=== PATIENT | female | born 1945 | race Hispanic/Latino ===

== ENCOUNTER 2024-06-11 09:34 | Emergency (ER) | payer SELFPAY ==
[2024-06-11 09:52] VITALS: BP 120/70; PULSE 89; RESP 14; TEMP 36.4; O2SAT 100
--- NOTE | 2024-06-11 10:17 | PC.NURSE ---
Pt states albert leaving and going to [place] where her doctors are.
--- OUTSIDE RECORDS SUMMARY | 2024-06-11 10:41 | XMS_ITS | Clinical Summary ---
Author Organization [facility] [address] [place] [address] Address [address] [facility] [address] [place] [address] Care Team Providers Care Equipment Service Associate Name Role Phone Mitchell Menard MD Primary Care Provi grazyna Allergies Active Allergy Reactions Criticality Noted Date Comments Other Chest tightness,Shortness of breath,Swelling,Swollen tongue,Wheezing High 04/23/2024 Penicillins Rash Medium 12/27/2023 Propofol Anaphylaxis High 05/02/2024 Family was with patient and said she can't have general anesthesia due to being intubated in the past before because of this medication. Medications aspirin 81 mg enteric coated tabletIndicatio ns:Controlled type 2 diabetes mellitus with complication, without long-term current use of insulin (HCC) Take 1 tablet (81 mg total) by mouth daily Active losartan (COZAAR) 100 mg tabletIndicatio ns:Hypertension , essential Take 0.5 tablets (50 mg total) by mouth daily 90 tablet 1 4 12/22/19 25 Active nitroglycerin (NITROSTAT) 0.4 mg SL tabletIndicatio ns:acute episode of anginal pain Place 1 tablet (0.4 mg total) under the tongue every 5 (five) minutes as needed for chest pain for up to 30 doses 30 tablet 3 4 Active diclofenac sodium (VOLTAREN) 1 % gelIndications: Osteoarthritis Apply 4 g topically 4 (four) times a day 150 g 3 4 Active rosuvastatin (CRESTOR) 20 mg tablet Take 1 tablet (20 mg total) by mouth daily 30 tablet 11 4 01/23/20 25 Active cetirizine (ZyrTEC) 10 mg tabletIndicatio ns:Seasonal allergies Take 1 tablet (10 mg total) by mouth daily as needed for allergies 90 tablet 4 4 02/10/20 25 Active fluticasone propionate (FLONASE) 50 mcg/actuation nasal sprayIndication s:Seasonal allergies Administer 2 sprays into each nostril daily 3 each 4 4 Active azelastine (ASTELIN) 137 mcg (0.1 %) nasal sprayIndication s:Seasonal allergies Administer 1 spray into each nostril 2 (two) times a day Use in each nostril as directed 30 mL 1 4 Active FreeStyle Kim 3 Sensor deviceIndicatio ns:Controlled type 2 diabetes mellitus with complication, without long-term current use of insulin (HCC) 1 Device continuously Change sensor every 14 days 4 each 6 5 Active albuterol HFA (PROVENTIL HFA,VENTOLIN HFA,PROAIR HFA) 90 mcg/actuation inhalerIndicati ons:Acute Asthma Attack Inhale 2 puffs every 6 (six) hours as needed for wheezing or shortness of breath 1 each 3 5 Active isosorbide mononitrate ER (IMDUR) 30 mg 24 hr tablet Take 1 tablet (30 mg total) by mouth daily 90 tablet 3 5 04/13/19 26 Active metFORMIN XR (GLUCOPHAGE XR) 500 mg 24 hr tablet Take 3 tablets (1,500 mg total) by mouth daily with breakfast 270 tablet 3 5 Active gabapentin (NEURONTIN) 300 mg capsuleIndicati ons:Diabetic peripheral neuropathy (HCC) Take 1 capsule (300 mg total) by mouth 3 (three) times a day 90 capsule 2 5 07/24/19 25 Active Active Problems Problem Noted Date Diagnosed Date Generalized osteoarthritis of multiple sites 06/2024 Unstable angina 01/17/2024 Assessment & Plan (01/17/2024 8:21 PM CDT): - likely CAD, s/p cardiac catheterization in 1995- records not available for review - per recent PCP records: underwent lexiscan (07/18/23): normal isotope uptake at stress and rest. There is no evidence of myocardial ischemia or scar. Normal LV size and systolic function, LV EF 70%. No regional wall motion abnormalities. Overall findings are present low risk scan. - Reports intermittent chest pain, currently asymptomatic - Continue ASA 81 mg daily, nitroglycerin p.r.n. - Referral to Cardiology Overweight with body mass index (BMI) 25.0-29.9 01/17/2024 Assessment & Plan (03/30/2024 3:10 PM [facility]): - ADA/ heart healthy diet Assessment & Plan (01/17/2024 8:22 PM CDT): - ADA/heart healthy diet Diabetic peripheral neuropathy 01/17/2024 Assessment & Plan (03/30/2024 3:10 PM [facility]): - chronic, continue gabapentin Assessment & Plan (01/17/2024 8:28 PM CDT): - Reports chronic lower extremity burning sensation - Sensation intact, 2+ posterior tibialis and dorsalis pedis pulses - Start low-dose gabapentin Chronic low back pain with bilateral sciatica Assessment & Plan (01/17/2024 8:32 PM CDT): - Pt declines imaging at this time - referral to PT Hypertension associated with diabetes 01/02/2024 Assessment & Plan (03/30/2024 3:05 PM [facility]): - chronic; stable at goal of < 140/90 - Continue losartan 100 mg daily Assessment & Plan (01/17/2024 8:11 PM CDT): - Chronic, stable at goal of < 140/90 - Continue losartan 100 mg daily Assessment & Plan (01/02/2024 11:02 PM CDT): - chronic, stable at goal of < 140/90 - continue losartan 100 mg daily - likely CAD, s/p cardiac catheterization in 1995- awaiting further medical records - on ASA 80 mg daily, nitroglycerin p.r.n. - currently asymptomatic Controlled type 2 diabetes m joellen with complication, without long-term current use of insulin 01/02/2024 Assessment & Plan (03/30/2024 3:07 PM [facility]): - chronic; most recent hemoglobin A1c 7 - Continue Januvia 50 mg daily plus metformin 500 mg b.i.d. - eGFR 86, uACR 21 - on ACEI - Recommend yearly dilated eye exam - peripheral protective sensation intact Assessment & Plan (01/17/2024 8:03 PM CDT): - Chronic, hemoglobin A1c of 7 - Continue Januvia 50 mg daily plus metformin 500 mg b.i.d. - eGFR 86, uACR < 30 - on ACEI - Recommend yearly dilated eye exam - Monofilament exam completed- intact peripheral sensation Assessment & Plan (01/02/2024 10:56 PM CDT): - chronic, poorly controlled - on freestyle Kim CGM- labile blood glucose levels - continue metformin 500 mg b.i.d. 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 lyubov itus 01/02/2024 Assessment & Plan (03/30/2024 3:10 PM [facility]): - chronic; LDL 103, goal < 70 - Continue atorvastatin 20 mg nightly- recently decreased by endo d/t myalgias - High ASCVD risk, consider adding Zetia, start ASA 81 mg - low-fat/high-fiber diet, increase physical activity The 10-year ASCVD risk score (Belem AHUMADA, et al., 2019) is: 47.2% Values used to calculate the score: Age: 78 years Sex: Female Is Non- : No Diabetic: Yes Tobacco smoker: No Systolic Blood Pressure: 128 mmHg Is BP treated: Yes HDL Cholesterol: 51 mg/dL Total Cholesterol: 174 mg/dL Assessment & Plan (01/17/2024 8:09 PM CDT): - Chronic, LDL 103, goal < 70 - Has been out of cholesterol medicine, restart atorvastatin 40 mg nightly - high ASCVD risk- 51.4%, may consider increasing atorvastatin to 80 mg or adding zetia- if tolerating current atorvastatin dose well; on ASA 81 mg daily - Referral to Cardiology Assessment & Plan (01/02/2024 11:01 PM CDT): - chronic, cholesterol levels not available for review - continue atorvastatin 40 mg nightly - check lipid panel History of colonic polyps 12/28/2023 Encounter for screening colonoscopy 12/28/2023 Resolved Problems Problem Noted Date Diagnosed Date Resolved Date Body mass index (BMI) of 28.0-28.9 in adult 01/02/2024 01/17/2024 Encounter for screening colonoscopy 12/28/2023 01/17/2024 Encounters Date Type Department Care Team Description 05/25/2024 9:45 AM [facility] Office Visit [facility] at [address] [place] [phone] Sofie Saldivar NP 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) (Primary Dx); Hypertension associated with diabetes (HCC) 05/02/2024 11:00 AM [facility] - 05/02/2024 11:30 AM [facility] Surgery [address] [address] Calvin Sousa DO COLON REMOVAL SNARE 05/02/2024 9:55 AM [facility] Anesthesia Event [address] [address] Jacobo Shaw MD McDowell, Juri Osmell, MD 05/02/2024 7:16 AM [facility] - 05/02/2024 11:16 AM [facility] Hospital Encounter [address] [address] Calvin Sousa DO History of colonic polyps; Encounter for screening colonoscopy Discharge Disposition: Discharge to home or self care 04/24/2024 11:00 AM [facility] Office Visit [facility] at [address] [phone] Mitchell Menard MD Controlled type 2 diabetes mellitus with complication, without long-term current use of insulin (HCC) (Primary Dx); Hypertension associated with diabetes (HCC); Diabetic peripheral neuropathy (HCC); Generalized osteoarthritis of multiple sites 04/24/2024 10:00 AM [facility] Office Visit [facility] at [address] [place] [phone] Carlos Rodriguez DO Controlled type 2 diabetes mellitus with complication, without long-term current use of insulin (HCC) (Primary Dx); Hyperlipidemia associated with type 2 diabetes mellitus (HCC); Hypertension associated with diabetes (HCC) 04/18/2024 Telephone [facility] at [address] [phone] Bina Lugo NP Medical Records Request 04/13/2024 1:00 PM [facility] Office Visit [facility] at [address] [phone] Sofie Saldivar NP 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) (Primary Dx); Unstable angina (HCC); Hypertension associated with diabetes (HCC) 03/23/2024 1:30 PM [facility] Office Visit [facility] at [address] [place] [phone] Bina Lugo NP Mild intermittent asthma without complication (Primary Dx); Controlled type 2 diabetes mellitus with complication, without long-term current use of insulin (HCC); Hypertension associated with diabetes (HCC); 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); Overweight with body mass index (BMI) 25.0-29.9; Diabetic peripheral neuropathy (HCC) from Last 3 Months Immunizations Immunization Administration Dates Next Due Influenza LAIV (Nasal) 12/24/2022(Deferred: Mariana ent Refused) Influenza, Unspecified 04/24/2024(Deferr ed: Patient Refused),01/15/2023(Deferred: Patient Refused),12/28/2022(Deferred: Patient Refused),12/28/2022(Deferred: Patient Refused) Surgical History Surgery Date Site/Laterality Comments COLONOSCOPY Medical History Medical History Date Comments Low bone mass HTN (hypertension) HLD (hyperlipidemia) DM (diabetes mellitus) (HCC) Neuropathy Adenomatous colon polyp DJD (degenerative joint disease) CAD (coronary artery disease) Vitamin D deficiency Social History Tobacco Use Types Packs/Day Years Used Date Smoking Tobacco: Never Tobacco Cessation:Counseling Given: Not Answered AUDIT-C Answer Date Recorded Q1: How often do you have a drink containing alc ohol? Never 05/02/2024 Average Number of Drinks Not on file 025 Frequency of Binge Drinking Not on file 04/21 PHQ-2 Answer Date Recorded PHQ-2 Total Score (If total score is 3 or more points, staff should administer the PHQ-9) 0 04/24/2024 PHQ-9 Answer Date Recorded PHQ-9 Total Score 1 12/27/2023 Personal Safety Answer Date Recorded Have you ever been in or are you currently in a harmful physical or emotional relationship or is someone making you feel afraid or unsafe? Denies 05/02/2024 Comments Unknown Sex and Gender Information Value Date Recorded Sex Assigned at Not on file Legal Sex Female 2:41 PM CDT Gender Identity Not on file Sexual Orientation Not on file Obstetrics History Last Filed Vital Signs Vital Sign Reading Time Taken Comments Blood Pressure 129/70 05/25/2024 10:24 AM [facility] Pulse 83 05/25/2024 10:24 AM [facility] Temperature 36.8 C (98.2 F) 05/02/2024 10:59 AM [facility] Respiratory Rate 16 05/02/2024 10:59 AM [facility] Oxygen Saturation 100% 05/02/2024 10:59 AM [facility] Inhaled Oxygen Concentration - - Weight 73.5 kg (162 lb) 05/25/2024 10:24 AM [facility] Height 157.5 cm (5' 2 ) 05/25/2024 10:24 AM [facility] Body Mass Index 29.63 05/25/2024 10:24 AM [facility] Plan of Treatment Health Maintenance Due Date Last Done Comments Dilated Eye Exam 1945 DTaP/Tdap/Td Vaccine (1 - Tdap) 1956 Pneumococcal vaccine 65+ (1 of 2 - PCV) 1964 Zoster Vaccine (1 of 2) 09/08/1995 Well Visit 65+ 2010 Influenza Vaccine (#1) 2023 Hemoglobin A1C 10/22/2024 04/24/2024, 12/27/2023 Albumin Creatinine Ratio, Urine 12/26/2024 Lipid Panel 12/26/2024 12/27/2023, 07/18/2023 eGFR 12/26/2024 12/27/2023 Foot Exam 01/16/2025 01/17/2024 Depression Screening 04/24/2025 04/24/2024, 12/27/19 Fall Risk Assessment 05/02/2025 05/02/2024, 12/27/19 Osteoporosis Screening-Bone Density Scan 02/19/2026 02/20/2024, 09/11/2020, 09/11/2020 Hepatitis B Screening Completed 12/27/2023 Hepatitis C Screening Completed 12/27/2023 Procedures Procedure Name Priority Date/Time Associated Diagnosis Comments SURGICAL PATHOLOGY STAT 05/02/2024 11 :36 AM [facility] History of colonic polyps Encounter for screening colonoscopy COLON REMOVAL SNARE 05/02/2024 9:54 AM [facility] History of colonic polyps Encounter for screening colonoscopy POCT GLUCOSE DEVICE Routine 05/02/2024 9:47 AM [facility] COLONOSCOPY 05/02/2024 8:50 AM [facility] POCT HEMOGLOBIN A1C Routine 04/24/2024 10:14 AM [facility] Controlled type 2 diabetes mellitus with complication, without long-term current use of insulin (HCC) DEXA AXIAL SKELETON BONE DENSITY 1 OR MORE SITES Schedule Routine, Read Routine (OP Routine) 02/20/2024 3:06 PM [facility] Post-menopause HEPATITIS C ANTIBODY Routine 12/27/2023 4:00 PM CDT Encounter for hepatitis C screening test for low risk patient EGFR Routine 12/27/2023 4:00 PM CDT Controlled type 2 diabetes mellitus with complication, without long-term current use of insulin (HCC) Hypertension, essential LIPID PANEL Routine 12/27/2023 4:00 PM CDT Type 2 diabetes mellitus with hyperlipidemia (HCC) ALBUMIN CREATININE RATIO, URINE Routine 12/27/2023 4:00 PM CDT Controlled type 2 diabetes mellitus with complication, without long-term current use of insulin (HCC) from Last 3 Months or Most Recently Relevant to Health Maintenance Results * Surgical pathology (05/02/2024 11:36 AM [facility]) Tissue (Polyp(s), colon/colorectal, esophageal, gastric) 05/02/2024 10:12 AM [facility] Narrative PATHOLOGY [facility] - 05/03/2024 10:51 AM [facility] EPIC results best viewed via link to PDF [facility] Department of Pathology [address] [place] [address] Note to Patients: This report may contain a detailed description of human tissue sent by a health care provider to the laboratory for pathologic evaluation. The content of this report is essential for diagnosis and may provide important critical findings. This information may be unfamiliar to patients to review without a medical professional present. It is advised that the patient review this report in the presence of a health care provider who can answer questions and explain the details. Final Report Patient Name: ALISHA IRELAND Address: [address] [place] [address] Gender: F : 1945 (Age: 78) Service: Gastro Location: [facility] Hospital #: [id number] Patient Type: [facility] Taken: 05/02/2024 Received: 05/02/2024 Accessioned: 05/02/2024 Reported: 05/03/2024 Physician(s):Dr. Calvin Sousa, D.O. Diagnosis: Colon, cecum, biopsy: - Tubulovillous adenoma. - No evidence of high-grade dysplasia or malignancy. Matt Mcpherson MD Report Electronically Reviewed and Signed Out By Matt Mcpherson MD 05/03/2024 10:51:37 Specimen(s) Received: A: Cecum colon polyp x 1 Microscopic Description: Microscopic examination of the bisected specimen shows polypoid fragments of colonic mucosa with adenomatous mucosal changes and focal surface villiform architecture consistent with a tubulovillous adenoma. There is no evidence of high-grade dysplasia or malignancy. Clinical History: History of colonic polyps. Screening colonoscopy. Gross Description: The specimen is submitted in a single formalin filled container labeled ALISHA BEKA and cecum colon polyp . It is 1 hook polypoid tissue fragment measuring 9 mm. Inked and bisected. All in one cassette. Debbie Gutierrez R.N., P.A./Ryann Coello M.D. REPORT IMAGES AND SCANNED DOCUMENTS, IF INCLUDED, ONLY VIEWABLE IN PDF VERSION OF REPORT The performance characteristics of some immunohistochemical stains, fluorescence in-situ hybridization tests and immunophenotyping by flow cytometry cited in this report (if any) were determined by the Surgical Pathology Department at [facility] as part of an ongoing aircraft quality control inspector program and in compliance with federally mandated regulations drawn from the Clinical Laboratory Improvement Act of 1988 (CLIA '88). Some of these tests rely on the use of analyte specific reagents and are subject to specific labeling requirements by the US Food and Drug Administration. Such diagnostic tests may only be performed in a facility that is certified by the Department of Health and Human Services as a high complexity laboratory under CLIA '88. The FDA has determined that such clearance or approval is not necessary. This test is used for clinical purposes. It should not be regarded as investigational or for research. Nevertheless, federal rules concerning the medical use of analyte specific reagents require that the following disclaimer be attached to the report: This test was developed and its performance characteristics determined by the Surgical Pathology Department [facility]. It has not been cleared or approved by the U. S. Food and Drug Administration. Note for decalcified specimens: This assay has not been validated on decalcified tissues. Results should be interpreted with caution given the possibility of false negativity on decalcified specimens Calvin Sousa DO LAB PATHOLOGY ORDERABLES Final Result PATHOLOGY [facility] [place] [address] [place] [address] * POCT glucose (05/02/2024 9:47 AM [facility]) Glucose, POC 114 70 - 199 mg/dL Blood 05/02/2024 9:47 AM [facility] 05/02/2024 9:47 AM [facility] us Calvin Sousa DO LAB POCT ORDERABLES - DEVICE F inal Result JUAN M POLANCO IESHA [address] Department [place] [address] * Colonoscopy (05/02/2024 8:50 AM [facility]) Anatomical Region Laterality Modality Other Narrative Procedure Note Calvin Sousa DO - 05/02/2024 8:50 AM CST [facility] Patient Name: Alisha Ireland Procedure Date: 05/02/2024 8:50 AM Date of : 1945 Admit Type: Outpatient Age: 78 Gender: Female Attending MD: Calvin Sousa D.O. Room: [facility] ENDOSCOPY ROOM 3 Note Status: Finalized Patient Profile: Refer to note in patient chart for documentation of history and physical. Procedure: Colonoscopy Indications: High risk colon cancer surveillance: Personalhistory of colonic polyps, Last colonoscopy: 2019 Referring MD: Jason Kulkarni D.O. Providers: Calvin Sousa D.O. Impression: - The examined portion of the ileum was normal. - One 12 mm polyp in the cecum, removed with a hot snare. Resected and retrieved. - Diverticulosis in the sigmoid colon. - Internal hemorrhoids. Recommendation: - Discharge patient to home. - Resume previous diet. - Continue present medications. - Await pathology results. - Repeat colonoscopy in 3 years for surveillance. - Return to GI office PRN. Medicines: Monitored Anesthesia Care Complications: No immediate complications. Estimated Blood Loss: Estimated blood loss was minimal. Procedure: Pre-Anesthesia Assessment: - As per anesthesia. The benefits, risks and alternatives of theprocedure and sedation were discussed and informed consentwas obtained. All questions were answered. Please referto the signed informed consent document in the medical record. The bowel preparation used was Miralax via split dose instruction. The bowel preparation usedwas bisacodyl tablets via split dose instruction. The scope was passed under direct vision. The Pediatric Colonoscope PCF-H190L [id number] was introducedthrough the anus and advanced to the 5 cm into the ileum.The terminal ileum, ileocecal valve, appendicealorifice, and rectum were photographed. The colonoscopy was performed without difficulty. The patient tolerated the procedure well. The quality of the bowel preparation was adequate to identify polyps 6 mmand larger in size. Findings: The perianal and digital rectal examinations were normal. The terminal ileum appeared normal. A 12 mm polyp was found in the cecum. The polyp was pedunculated. The polyp was removed with a hot snare. Resection and retrieval were complete. To prevent bleeding post-intervention, one hemostatic clipwas successfully placed (MR conditional). Clip pharmacist assistant: Jumio. There was no bleeding at the end of the procedure. A few diverticula were found in the sigmoid colon. Internal hemorrhoids were found. The hemorrhoids were small. No additional abnormalities were found on retroflexion. Electronically signed by Calvin Sousa M.D. Calvin Sousa D.O. 05/02/2024 10:30:37 AM Number of Addenda: 0 Note Initiated On: 05/02/2024 8:50 AM Procedure Code(s): --- Professional --- 13476, Colonoscopy, flexible; with removal of tumor(s), polyp(s), or other lesion(s) by snare technique --- Technical --- 90769, Colonoscopy, flexible; with removal of tumor(s), polyp(s), or other lesion(s) by snare technique Diagnosis Code(s): --- Professional --- K64.8, Other hemorrhoids Z86.010, Personal history of colonic polyps D12.0, Benign neoplasm of cecum K57.30, Diverticulosis of large intestine without perforation orabscess without bleeding --- Technical --- K64.8, Other hemorrhoids Z86.010, Personal history of colonic polyps D12.0, Benign neoplasm of cecum K57.30, Diverticulosis of large intestine without perforation orabscess without bleeding CPT copyright 2020 [employer]. All rights reserved. The codes documented in this report are preliminary and upon meal grinder tender reviewmay be revised to meet current compliance requirements. Recognized by the [employer] for promoting quality in endoscopy Calvin Sousa DO ENDOSCOPY PROCEDURES Final Res ult * POCT hemoglobin A1c (04/24/2024 10:14 AM [facility]) Hemoglobin A1C, POC 7.6 4.0 - 5.6 % Blood 04/24/2024 10:1 4 AM [facility] Carlos Rodriguez DO POINT OF CARE TEST ORDERABL ES Final Result * Dexa Axial Skeleton Bone Density 1 or 2 Site (02/20/2024 3:06 PM [facility]) Anatomical Region Laterality Modality Body N/A Other 02/20/2024 9:06 PM [facility] Narrative 02/20/2024 9:07 PM [facility] EXAM DESCRIPTION: DEXA AXIAL SKELETON BONE DENSITY 1 OR MORE SITES REASON FOR STUDY: 78 y/o year old F with given history of: Menopause screening for osteoporosis Screening. Wood Turning Lathe Operator/Model: Joosy Discovery SL (S/N [id number]) CLINICAL INFORMATION: Current height: 63 inches Maximum height: 63 inches Weight: 158 pounds Risk factors: Postmenopausal COMPARISON: None available FINDINGS: AP LUMBAR SPINE L1-L4: Total BMD is 1.078 g/cm2 T-score is 0.3 LEFT HIP: Total BMD is 0.926 g/cm2 T-score is -0.1 Femoral neck BMD is 0.667 g/cm2 T-score is -1.6 FRAX: 10 year risk for a major osteoporotic fracture is 13 %, 10 year risk for a hip fracture is 3.1 % IMPRESSION: Low Bone Mass. REFERENCE: Bone mineral density: T-Score: Normal (T-score above or = -1.0) Low bone mass (T-score between -1.0 and -2.5) replaces the previously used term osteopenia Osteoporosis (T-score = or below -2.5) Z-Score: Within the expected range for age (Z-score above -2.0) Below the expected range for age (Z-score is -2.0 or below) Please see below follow up recommendations. Medical evaluation for secondary causes of low bone mineral density may be appropriate. FRAX is a World Health Organization validated fracture risk assessment tool that calculates a person's 10 year probability of a major osteoporosis related fracture and hip fracture. According to the National Osteoporosis Foundation guidelines, postmenopausal women and men age 50 or older with low bone mass and a 10 year probability of a major osteoporosis related fracture = or greater than 20% or a 10 year probability of a hip fracture = or greater than 3% should be considered for pharmacological treatment for the prevention of osteoporosis. For further information, including treatment recommendations, please refer to the 2019 ISCD Official Positions (http://www.iscd.org) and the NOF's Clinician's Guide to Prevention and Treatment of Osteoporosis (http://www.nof.org/professionals/clinical-guidelines) THIS IS AN ELECTRONICALLY VERIFIED FINAL REPORT 02/20/2024 9:07 PM - Electronically signed by Og Rapp M.D. MF: SHIVA Report ID: [id number] Reading Location: [id number] Procedure Note Og Rapp MD - 02/20/2024 EXAM DESCRIPTION: DEXA AXIAL SKELETON BONE DENSITY 1 OR MORE SITES REASON FOR STUDY: 78 y/o year old F with given history of: Menopause screening for osteoporosis Screening. Wood Turning Lathe Operator/Model: Joosy Discovery SL (S/N [id number]) CLINICAL INFORMATION: Current height: 63 inches Maximum height: 63 inches Weight: 158 pounds Risk factors: Postmenopausal COMPARISON: None available FINDINGS: AP LUMBAR SPINE L1-L4: Total BMD is 1.078 g/cm2 T-score is 0.3 LEFT HIP: Total BMD is 0.926 g/cm2 T-score is -0.1 Femoral neck BMD is 0.667 g/cm2 T-score is -1.6 FRAX: 10 year risk for a major osteoporotic fracture is 13 %, 10 year risk for ahip fracture is 3.1 % IMPRESSION: Low Bone Mass. REFERENCE: Bone mineral density: T-Score: Normal (T-score above or = -1.0) Low bone mass (T-score between -1.0 and -2.5) replaces thepreviously used term osteopenia Osteoporosis (T-score = or below -2.5) Z-Score: Within the expected range for age (Z-score above -2.0) Below the expected range for age (Z-score is -2.0 or below) Please see below follow up recommendations. Medical evaluation forsecondary causes of low bone mineral density may be appropriate. FRAX is a World Health Organization validated fracture risk assessmenttool that calculates a person's 10 year probability of a major osteoporosisrelated fracture and hip fracture. According to the National OsteoporosisFoundation guidelines, postmenopausal women and men age 50 or older with low bonemass and a 10 year probability of a major osteoporosis related fracture = or greater than 20% or a 10 year probability of a hip fracture = or greaterthan 3% should be considered for pharmacological treatment for the preventionof osteoporosis. For further information, including treatment recommendations, please referto the 2019 ISCD Official Positions (http://www.iscd.org) and the NOF's Clinician's Guide to Prevention and Treatment of Osteoporosis (http://www.nof.org/professionals/clinical-guidelines) THIS IS AN ELECTRONICALLY VERIFIED FINAL REPORT 02/20/2024 9:07 PM - Electronically signed by Og Rapp M.D. MF: SHIVA Report ID: [id number] Reading Location: [place] [address] Bina Lugo TRANSPORT SPECIALIST IMG DXA PROCEDURES Final Res ult * eGFR (12/27/2023 4:00 PM CDT) eGFR 86 >=60 mL/min/1. 73 m2 Comment: Interpretive Data Reference Interval Normal >/= 90 mL/min/1.73m2 Mildly decreased* 60 - 89 mL/min/1.73m2 Mildly to moderately decreased 45 - 59 mL/min/1.73m2 Moderately to severely decreased 30 - 44 mL/min/1.73m2 Severely decreased 15 - 29 mL/min/1.73m2 Kidney Failure < 15 mL/min/1.73m2 *Relative to young adult level Estimated glomerular filtration rate is determined by the 2020 CKD-EPI equation recommended by the National Kidney Foundation (A Unifying Approach to GFR Estimation: Recommendations of the NKF-ASK Task Force on Reassessing the Inclusion of Race in Diagnosing Kidney Disease, JASN 2020). The CKD-EPI equation should not be used for patients with unstable renal function and has not been validated in children and those over 70. Current interpretive data was last reviewed 2021. Blood 12/27/2023 4:00 PM CDT 12/27/2023 8:46 PM CDT Bina Lugo NP LAB BLOOD ORDERABLES Final R esult JUAN M [address] [address] [place] [place] [address] * Hepatitis C antibody Blood (12/27/2023 4:00 PM CDT) Pathologist [facility] Hep C Ab Nonreactive Nonreactive Comment: Interpretive Data Nonreactive: Antibodies to HCV not detected. Does NOT exclude the possibility of recent exposure to HCV. Equivocal: Equivocal for HCV antibodies. Supplemental molecular testing will be automatically performed to determine infection status in accordance with current CDC screening recommendations. Reactive: Positive for HCV antibodies. This may represent current or past HCV infection. Supplemental molecular testing will be automatically performed to determine current infection status in accordance with current CDC screening recommendations. Interpretive data was last revised on 2019. Blood 12/27/2023 4:00 PM CDT 12/27/2023 8:46 PM CDT Bina Lugo NP LAB MICROBIOLOGY - GENERAL O RDERABLES Final Result Performing Organization Address [facility] Co de Phone Number STEFANIEDWAYNE [address] [place] [address] * Albumin Creatinine Ratio, Urine (12/27/2023 4:00 PM CDT) Albumin Ur 23.1 mg/L Comment: Interpretive Data No reference range established. Current interpretive data was last revised 2018. Creatinine Ur 109.9 mg/dL [facility] Comment: Interpretive Data No reference range established. Current interpretive data was last revised 2018. Albumin Creatinine Ratio, Ur 21 1 - 29 mg/g [facility] Urine 12/27/2023 4:00 PM CDT 12/27/2023 8:46 PM CDT Bina Lugo NP LAB URINE ORDERABLES Final R esult Performing Organization Address [facility] Co de Phone Number STEFANIEDWAYNE [address] [place] [address] * Lipid panel (12/27/2023 4:00 PM CDT) Cholesterol 174 30 - 199 mg/dL Comment: Interpretive Data Ages < or = 19 years Acceptable: <170 mg/dL Borderline high: 170-199 mg/dL High: >or= 200 mg/dL Ages > or = 20 years Desirable: <200 mg/dL Borderline high: 200-239 mg/dL High: >or= 240 mg/dL Literature References: 1. Expert Panel on Integrated Guidelines for Cardiovascular Health and Risk Reduction in Children and Adolescents. Pediatrics 2011;128:S213 2. NCEP Expert Panel. Circulation 2004;110:227 Current Interpretive Data was last revised on 2017. Triglycerides 114 <=149 mg/dL JUAN M Comment: Interpretive Data Ages < or = 9 years Acceptable: <75 mg/dL Borderline high: 75-99 mg/dL High: >or= 100 mg/dL Ages 10 to 20 years Acceptable: <90 mg/dL Borderline high: 90-129 mg/dL High: >or= 130 mg/dL Ages > or = 20 years Desirable: <150 mg/dL Borderline high: 150-199 mg/dL High: 200-499 mg/dL Very high: >or= 499 mg/dL Literature References: 1. Expert Panel on Integrated Guidelines for Cardiovascular Health and Risk Reduction in Children and Adolescents. Pediatrics 2011;128:S213 2. NCEP Expert Panel. Circulation 2004;110:227 Current Interpretive Data was last revised on 2017. HDL 51 >=40 mg/dL JUAN M Comment: Interpretive Data Ages < or = 19 years Acceptable: >45 mg/dL Borderline low: 40-45 mg/dL Low: <40 mg/dL Ages > or = 20 years Desirable: >or= 60 mg/dL Low: <40 mg/dL Literature References: 1. Expert Panel on Integrated Guidelines for Cardiovascular Health and Risk Reduction in Children and Adolescents. Pediatrics 2011;128:S213 2. NCEP Expert Panel. Circulation 2004;110:227 Current Interpretive Data was last revised on 2017. LDL, calculated 103 <=129 mg/dL JUAN M Comment: Interpretive Data Ages < or = 19 years Acceptable: <110 mg/dL Borderline high: 110-129 mg/dL High: >or= 130 mg/dL Ages > or = 20 years Optimal: <100 mg/dL Near optimal: 100-129 mg/dL Borderline high: 130-159 mg/dL High: >160 mg/dL Calculated using the Cannon LDL-C estimating equation. This equation was implemented on 2023. Prior to this date LDL-C was estimated using the Friedewald equation. Literature References: 1. Expert Panel on Integrated Guidelines for Cardiovascular Health and Risk Reduction in Children and Adolescents. Pediatrics 2011;128:S213 2. NCEP Expert Panel. Circulation 2004;110:227 3. Davis M et al. NICK Cardiol. 2020 July 19;5(5):540-548. doi: 10.1001/jamacardio.2020.0013 Current Interpretive Data was last revised on 2023. Non-HDL Cholesterol 123 mg/dL JUAN M [place] Comment: Interpretive Data Ages < or = 19 years Acceptable: <120 mg/dL Borderline high: 120-144 mg/dL High: >145 mg/dL Ages > or = 20 years When triglycerides are >200 mg/dL, Non-HDL cholesterol is a secondary target of therapy with treatment goals that are 30 mg/dL greater than the LDL cholesterol target. Literature References: 1. Expert Panel on Integrated Guidelines for Cardiovascular Health and Risk Reduction in Children and Adolescents. Pediatrics 2011;128:S213 2. NCEP Expert Panel. Circulation 2004;110:227 Current Interpretive Data was last revised on 2017. Chol/HDL ratio 3 JUAN M [place] Blood 12/27/2023 4:00 PM CDT 12/27/2023 8:46 PM CDT us Bina Lugo NP LAB BLOOD ORDERABLES Final R esult JUAN M [place] [address] [address] [place] [address] from Last 3 Months or Most Recently Relevant to Health Maintenance Insurance IDPA [facility] MEDICARE ADVANTAGE Advance Directives For more information, please contact: [phone] * Full Code (Latest Code Status on File) Date Activated Date Inactivated Comments 05/02/2024 8:02 AM 05/02/2024 3:16 PM * Full Code Date Activated Date Inactivated Comments 05/02/2024 8:02 AM 05/02/2024 8:02 AM Care Teams Equipment Service Associate Relationship Specialty Start Date End Date Mitchell Menard MD [address] [address] PCP - General Family Practice 04/23/24
--- OUTSIDE RECORDS SUMMARY | 2024-06-11 10:41 | XMS_ITS | Referral Summary ---
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) (Primary Dx); Hypertension associated with diabetes (HCC) 05/02/2024 9:55 AM RADIO ASSEMBLER Anesthesia Event [address] [address] Jacobo Shaw MD McDowell, Juri Osmell, MD 05/02/2024 11:00 AM RADIO ASSEMBLER - 05/02/2024 11:30 AM RADIO ASSEMBLER Surgery [address] [address] Calvin Sousa DO COLON REMOVAL SNARE 05/02/2024 7:16 AM RADIO ASSEMBLER - 05/02/2024 11:16 AM RADIO ASSEMBLER Hospital Encounter [address] [address] Calvin Sousa DO History of colonic polyps; Encounter for screening colonoscopy Discharge Disposition: Discharge to home or self care 04/24/2024 11:00 AM RADIO ASSEMBLER Office Visit [facility] Primary Care at [address] [phone] Mitchell Menard MD Controlled type 2 diabetes mellitus with complication, without long-term current use of insulin (HCC) (Primary Dx); Hypertension associated with diabetes (HCC); Diabetic peripheral neuropathy (HCC); Generalized osteoarthritis of multiple sites 04/24/2024 10:00 AM RADIO ASSEMBLER Office Visit [facility]ocrine [facility] at [address] [phone] Carlos Rodriguez DO Controlled type 2 diabetes mellitus with complication, without long-term current use of insulin (HCC) (Primary Dx); Hyperlipidemia associated with type 2 diabetes mellitus (HCC); Hypertension associated with diabetes (HCC) 04/18/2024 Telephone [facility] Primary Care at [address] [phone] Bina Lugo NP Medical Records Request 04/13/2024 1:00 PM RADIO ASSEMBLER Office Visit [place] [facility] at [address] [phone] Sofie Saldivar NP 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) (Primary Dx); Unstable angina (HCC); Hypertension associated with diabetes (HCC) 03/23/2024 1:30 PM RADIO ASSEMBLER Office Visit [facility] Primary Care at [address] [phone] Bina Lugo NP Mild intermittent asthma without complication (Primary Dx); Controlled type 2 diabetes mellitus with complication, without long-term current use of insulin (HCC); Hypertension associated with diabetes (HCC); 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); Overweight with body mass index (BMI) 25.0-29.9; Diabetic peripheral neuropathy (HCC) from Last 3 Months Allergies Active Allergy Reactions Criticality Noted Date [...] complication, without long-term current use of insulin ([facility]) Take 1 tablet (81 mg total) by [...] complication, without long-term current use of insulin ([facility]) 1 Device continuously Change sensor every 14 [...] 01/17/2024 Assessment & Plan (03/30/2024 3:10 PM RADIO ASSEMBLER): - ADA/ heart healthy diet Assessment & Plan (01/17/2024 8:22 PM CDT): - ADA/heart healthy diet Diabetic peripheral neuropathy 01/17/2024 Assessment & Plan (03/30/2024 3:10 PM RADIO ASSEMBLER): - chronic, continue gabapentin Assessment & Plan [...] 01/02/2024 Assessment & Plan (03/30/2024 3:05 PM RADIO ASSEMBLER): - chronic; stable at goal of < [...] - currently asymptomatic Controlled type 2 diabetes sylvain cuenca with complication, without long-term current use of insulin 01/02/2024 Assessment & Plan (03/30/2024 3:07 PM RADIO ASSEMBLER): - chronic; most recent hemoglobin A1c 7 [...] 01/02/2024 Assessment & Plan (03/30/2024 3:10 PM RADIO ASSEMBLER): - chronic; LDL 103, goal < 70 [...] 01/17/2024 Encounter for screening colonoscopy 12/28/2023 01/17/2024 Immunizations Immunization Administration Dates Next Due Influenza LAIV (Nasal) 12/24/2022(Deferred: Mariana ent Refused) Influenza, Unspecified 04/24/2024(Deferr ed: Patient Refused),01/15/2023(Deferred: Patient Refused),12/28/2022(Deferred: Patient Refused),12/28/2022(Deferred: Patient Refused) Social History Tobacco Use Types Packs/Day Years [...] on file Sexual Orientation Not on file Last Filed Vital Signs Vital Sign Reading Time Taken Comments Blood Pressure 129/70 05/25/2024 10:24 AM RADIO ASSEMBLER Pulse 83 05/25/2024 10:24 AM RADIO ASSEMBLER Temperature 36.8 C (98.2 F) 05/02/2024 10:59 AM RADIO ASSEMBLER Respiratory Rate 16 05/02/2024 10:59 AM RADIO ASSEMBLER Oxygen Saturation 100% 05/02/2024 10:59 AM RADIO ASSEMBLER Inhaled Oxygen Concentration - - Weight 73.5 kg (162 lb) 05/25/2024 10:24 AM RADIO ASSEMBLER Height 157.5 cm (5' 2 ) 05/25/2024 10:24 AM RADIO ASSEMBLER Body Mass Index 29.63 05/25/2024 10:24 AM RADIO ASSEMBLER Plan of Treatment Not on file Procedures Procedure Name Priority Date/Time Associated Diagnosis Comments SURGICAL PATHOLOGY STAT 05/02/2024 11 :36 AM RADIO ASSEMBLER History of colonic polyps Encounter for screening colonoscopy COLON REMOVAL SNARE 05/02/2024 9:54 AM RADIO ASSEMBLER History of colonic polyps Encounter for screening colonoscopy POCT GLUCOSE DEVICE Routine 05/02/2024 9:47 AM RADIO ASSEMBLER COLONOSCOPY 05/02/2024 8:50 AM RADIO ASSEMBLER POCT HEMOGLOBIN A1C Routine 04/24/2024 10:14 AM RADIO ASSEMBLER Controlled type 2 diabetes mellitus with complication, without long-term current use of insulin (HCC) DEXA AXIAL SKELETON BONE DENSITY 1 OR MORE SITES Schedule Routine, Read Routine (OP Routine) 02/20/2024 3:06 PM RADIO ASSEMBLER Post-menopause HEPATITIS C ANTIBODY Routine 12/27/2023 4:00 [...] Results * Surgical pathology (05/02/2024 11:36 AM RADIO ASSEMBLER) Tissue (Polyp(s), colon/colorectal, esophageal, gastric) 05/02/2024 10:12 AM RADIO ASSEMBLER Narrative PATHOLOGY [facility] ([facility]) - 05/03/2024 10:51 AM RADIO ASSEMBLER [facility] results best viewed via link to PDF [facility] Department of Pathology [address] [place], [place] [id number] Note to Patients: This report may contain [...] Final Report Patient Name: ALISHA IRELAND Address: [address] [place] [address] Gender: F : 1945 (Age: 78) Service: Gastro Location: [facility] Hospital #: [id number] Patient Type: [facility] Taken: 05/02/2024 Received: 05/02/2024 Accessioned: 05/02/2024 Reported: 05/03/2024 Physician(s):Dr. Calvin Sousa D.O. Diagnosis: Colon, cecum, biopsy: - Tubulovillous [...] by the Surgical Pathology Department at [facility] as part of an ongoing quality assurance calibrator program and in compliance with federally mandated [...] characteristics determined by the Surgical Pathology Department [facility]. It has not been cleared or approved by the U. S. Food and Drug Administration. Note for decalcified specimens: This assay has not been validated on decalcified tissues. Results should be interpreted with caution given the possibility of false negativity on decalcified specimens Calvin Sousa DO LAB PATHOLOGY ORDERABLES Final Result PATHOLOGY [facility] ([facility]) [address] [place] [address] * POCT glucose (05/02/2024 9:47 AM RADIO ASSEMBLER) Glucose, POC 114 70 - 199 mg/dL Blood 05/02/2024 9:47 AM RADIO ASSEMBLER 05/02/2024 9:47 AM RADIO ASSEMBLER Calvin Sousa DO LAB POCT ORDERABLES - DEVICE F inal Result Performing Organization Address City/[facility]/ZIP Co de Phone Number CERNER [facility] ([facility]) [address] [facility] Department [place] [address] * Colonoscopy (05/02/2024 8:50 AM RADIO ASSEMBLER) Anatomical Region Laterality Modality Other Narrative Procedure Note Calvin Sousa, DO - 05/02/2024 8:50 AM CST [facility] Patient Name: Alisha Ireland Procedure Date: 05/02/2024 8:50 AM Date of : 1945 Admit Type: Outpatient Age: 78 Gender: Female Attending MD: Calvin Sousa DRoniO. Room: [facility] ENDOSCOPY ROOM 3 Note Status: Finalized Patient [...] under direct vision. The Pediatric Colonoscope [id number] was introducedthrough the anus and advanced to [...] hemostatic clipwas successfully placed (MR conditional). Clip transportation museum helper: [employer]. There was no bleeding at the end of the procedure. A few diverticula were found in the sigmoid colon. Internal hemorrhoids were found. The hemorrhoids were small. No additional abnormalities were found on retroflexion. Electronically signed by Calvin Sousa M.D. Calvin Sousa D.O. 05/02/2024 10:30:37 AM Number of Addenda: 0 Note Initiated On: 05/02/2024 8:50 AM Procedure Code(s): --- Professional --- 38696, Colonoscopy, flexible; with removal of tumor(s), polyp(s), or other lesion(s) by snare technique --- Technical --- 31801, Colonoscopy, flexible; with removal of tumor(s), polyp(s), [...] perforation orabscess without bleeding CPT copyright 2020 [employer]. All rights reserved. The codes documented in this report are preliminary and upon mannequin mounter reviewmay be revised to meet current compliance requirements. Recognized by the [employer] for promoting quality in endoscopy Calvin Sousa DO ENDOSCOPY PROCEDURES Final Res ult * POCT hemoglobin A1c (04/24/2024 10:14 AM RADIO ASSEMBLER) Hemoglobin A1C, POC 7.6 4.0 - 5.6 % Blood 04/24/2024 10:1 4 AM RADIO ASSEMBLER Carlos Rodriguez DO POINT OF CARE TEST ORDERABL ES Final Result * Dexa Axial Skeleton Bone Density 1 or 2 Site (02/20/2024 3:06 PM RADIO ASSEMBLER) Anatomical Region Laterality Modality Body N/A Other 02/20/2024 9:06 PM RADIO ASSEMBLER Narrative 02/20/2024 9:07 PM RADIO ASSEMBLER EXAM DESCRIPTION: DEXA AXIAL SKELETON BONE DENSITY 1 OR MORE SITES REASON FOR STUDY: 78 y/o year old F with given history of: Menopause screening for osteoporosis Screening. Piece Goods Clerk/Model: Ligandal SL (S/N [id number]) CLINICAL INFORMATION: Current height: 63 inches Maximum [...] Og Rapp M.D. MF: SHIVA Report ID: [id number] Reading Location: [id number] [facility] Note Og Rapp MD - 02/20/2024 EXAM DESCRIPTION: DEXA AXIAL SKELETON BONE DENSITY 1 OR MORE SITES REASON FOR STUDY: 78 y/o year old F with given history of: Menopause screening for osteoporosis Screening. Piece Goods Clerk/Model: Ligandal SL (S/N [id number]) CLINICAL INFORMATION: Current height: 63 inches Maximum [...] see below follow up recommendations. [facility] causes of low bone mineral density may [...] Og Rapp M.D. MF: SHIVA Report ID: [id number] Reading Location: [place] [address] Bina Lugo BOAT WRAPPER IMG DXA PROCEDURES Final Res ult * [...] NP LAB BLOOD ORDERABLES Final R esult Performing Organization Address City/[facility]/ZIP Co de Phone Number STEFANIEDWAYNE [address] [address] Department [place] [address] * Hepatitis C antibody Blood (12/27/2023 4:00 PM CDT) Hep C Ab Nonreactive Nonreactive Comment: Interpretive [...] O RDERABLES Final Result Performing Organization Address City/[facility]/ZIP Co de Phone Number STEFANIEDWAYNE [address] [address] Department [place] [address] * Albumin Creatinine Ratio, Urine (12/27/2023 4:00 PM CDT) Albumin Ur 23.1 mg/L Comment: Interpretive Data No reference range established. Current interpretive data was last revised 2018. Creatinine Ur 109.9 mg/dL JUAN M Comment: Interpretive Data No reference range established. Current interpretive data was last revised 2018. Albumin Creatinine Ratio, Ur 21 1 - 29 mg/g JUAN M Urine 12/27/2023 4:00 PM CDT 12/27/2023 8:46 PM CDT us Bina Lugo NP LAB URINE ORDERABLES Final R esult JUAN M [place] [address] [address] [place] [address] * Lipid panel (12/27/2023 4:00 PM CDT) [...] 2017. Triglycerides 114 <=149 mg/dL JUAN M [place] Comment: Interpretive Data [...] 2017. HDL 51 >=40 mg/dL JUAN M [place] Comment: Interpretive Data [...] LDL, calculated 103 <=129 mg/dL JUAN M [place] Comment: Interpretive Data Ages < or = 19 years Acceptable: <110 mg/dL Borderline high: 110-129 mg/dL High: >or= 130 mg/dL Ages > or = 20 years Optimal: <100 mg/dL Near optimal: 100-129 mg/dL Borderline high: 130-159 mg/dL High: >160 mg/dL Calculated using the Davis LDL-C estimating equation. This equation was implemented on 2023. Prior to this date LDL-C was estimated using the Friedewald equation. Literature References: 1. Expert Panel on Integrated Guidelines for Cardiovascular Health and Risk Reduction in Children and Adolescents. Pediatrics 2011;128:S213 2. NCEP Expert Panel. Circulation 2004;110:227 3. Davis Raymond et al. NICK Cardiol. 2019July 19;5(5):540-548. doi: 10.1001/jamacardio.2020.0013 Current Interpretive Data was [...] ORDERABLES Final R esult JUAN M [place] [address] [address] [place] [address] from Last 3 Months or Most Recently Relevant to Health Maintenance Insurance IDPA [facility] MEDICARE ADVANTAGE [facility] Address: [address] [address] [place] [address] Advance Directives For more information, please contact: [phone] * Full Code (Latest Code Status on File) Date Activated Date Inactivated Comments 05/02/2024 8:02 AM 05/02/2024 3:16 PM * Full Code Date Activated Date Inactivated Comments 05/02/2024 8:02 AM 05/02/2024 8:02 AM Care Teams Telephone Operators Supervisor Relationship Specialty Start Date End Date Mitchell Menard MD [address] [facility] [address] [place] [address] PCP - General Family Practice 04/23/24
--- OUTSIDE RECORDS SUMMARY | 2024-06-11 12:12 | XMS_ITS | Referral Summary ---
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) (Primary Dx); Hypertension associated with diabetes (HCC) 05/02/2024 9:55 AM ASSISTANT INFANT TEACHER Anesthesia Event [address] [address] Jacobo Shaw MD McDowell, Juri Osmell, MD 05/02/2024 11:00 AM ASSISTANT INFANT TEACHER - 05/02/2024 11:30 AM ASSISTANT INFANT TEACHER Surgery [address] [address] Calvin Sousa, COLON REMOVAL SNARE 05/02/2024 7:16 AM ASSISTANT INFANT TEACHER - 05/02/2024 11:16 AM ASSISTANT INFANT TEACHER Hospital Encounter [address] [address] Calvin Sousa DO History of colonic polyps; Encounter for screening colonoscopy Discharge Disposition: Discharge to home or self care 04/24/2024 11:00 AM ASSISTANT INFANT TEACHER Office Visit [facility] Primary Care at [address] [phone] Mitchell Menard MD Controlled type 2 diabetes mellitus with complication, without long-term current use of insulin (HCC) (Primary Dx); Hypertension associated with diabetes (HCC); Diabetic peripheral neuropathy (HCC); Generalized osteoarthritis of multiple sites 04/24/2024 10:00 AM ASSISTANT INFANT TEACHER Office Visit [facility] at [address] [phone] Carlos Rodriguez DO Controlled type 2 diabetes mellitus with complication, without long-term current use of insulin (HCC) (Primary Dx); Hyperlipidemia associated with type 2 diabetes mellitus (HCC); Hypertension associated with diabetes (HCC) 04/18/2024 Telephone [facility] Primary Care at [address] [phone] Bina Lugo NP Medical Records Request 04/13/2024 1:00 PM ASSISTANT INFANT TEACHER Office Visit [place] [employer] at [address] [phone] Sofie Saldivar NP 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) Take 1 tablet (81 mg total) by [...] 01/17/2024 Assessment & Plan (03/30/2024 3:10 PM ASSISTANT INFANT TEACHER): - ADA/ heart healthy diet Assessment & Plan (01/17/2024 8:22 PM CDT): - ADA/heart healthy diet Diabetic peripheral neuropathy 01/17/2024 Assessment & Plan (03/30/2024 3:10 PM ASSISTANT INFANT TEACHER): - chronic, continue gabapentin Assessment & Plan [...] 01/02/2024 Assessment & Plan (03/30/2024 3:05 PM ASSISTANT INFANT TEACHER): - chronic; stable at goal of < [...] 01/02/2024 Assessment & Plan (03/30/2024 3:07 PM ASSISTANT INFANT TEACHER): - chronic; most recent hemoglobin A1c 7 [...] 01/02/2024 Assessment & Plan (03/30/2024 3:10 PM ASSISTANT INFANT TEACHER): - chronic; LDL 103, goal < 70 [...] Average Number of Drinks Not on file Frequency of Binge Drinking Not on file [...] Sign Reading Time Taken Comments Blood Pressure 139/73 06/11/2024 11:14 AM CDT Pulse 83 06/11/2024 11:14 AM CDT Temperature 36.6 C (97.8 F) 06/11/2024 11:14 AM CDT Respiratory Rate 18 06/11/2024 11:14 AM CDT Oxygen Saturation 99% 06/11/2024 11:14 AM CDT Inhaled Oxygen Concentration - - Weight 72.6 kg (160 lb) 06/11/2024 11:14 AM CDT Height 157.5 cm (5' 2 ) 05/25/2024 10:24 AM ASSISTANT INFANT TEACHER Body Mass Index 29.26 05/25/2024 10:24 AM ASSISTANT INFANT TEACHER Plan of Treatment Not on file Procedures Procedure Name Priority Date/Time Associated Diagnosis Comments SURGICAL PATHOLOGY STAT 05/02/2024 11 :36 AM ASSISTANT INFANT TEACHER History of colonic polyps Encounter for screening colonoscopy COLON REMOVAL SNARE 05/02/2024 9:54 AM ASSISTANT INFANT TEACHER History of colonic polyps Encounter for screening colonoscopy POCT GLUCOSE DEVICE Routine 05/02/2024 9:47 AM ASSISTANT INFANT TEACHER COLONOSCOPY 05/02/2024 8:50 AM ASSISTANT INFANT TEACHER POCT HEMOGLOBIN A1C Routine 04/24/2024 10:14 AM ASSISTANT INFANT TEACHER Controlled type 2 diabetes mellitus with complication, without long-term current use of insulin (HCC) DEXA AXIAL SKELETON BONE DENSITY 1 OR MORE SITES Schedule Routine, Read Routine (OP Routine) 02/20/2024 3:06 PM ASSISTANT INFANT TEACHER Post-menopause HEPATITIS C ANTIBODY Routine 12/27/2023 4:00 [...] Results * Surgical pathology (05/02/2024 11:36 AM ASSISTANT INFANT TEACHER) Tissue (Polyp(s), colon/colorectal, esophageal, gastric) 05/02/2024 10:12 AM ASSISTANT INFANT TEACHER Narrative [facility] - 05/03/2024 10:51 AM ASSISTANT INFANT TEACHER EPIC results best viewed via link to PDF [facility] Department of Pathology [address] [place] [address] Note to Patients: This report may contain [...] Final Report Patient Name: ALISHA IRELAND Address: [address] [place], [place] [id number] Gender: F : 1945 (Age: 78) Service: Gastro Location: [facility] Hospital #: [id number] Patient Type: [facility] Taken: 05/02/2024 Received: 05/02/2024 Accessioned: 05/02/2024 Reported: 05/03/2024 Physician(s):Dr. Calvin Sousa DRoniO. Diagnosis: Colon, cecum, biopsy: - Tubulovillous adenoma. [...] a single formalin filled container labeled ALISHA IRELAND and cecum colon polyp . It is [...] determined by the Surgical Pathology Department at [facility] as part of an ongoing quality eng program and in compliance with federally mandated [...] characteristics determined by the Surgical Pathology Department [facility]. It has not been cleared or approved by the U. S. Food and Drug Administration. Note for decalcified specimens: This assay has not been validated on decalcified tissues. Results should be interpreted with caution given the possibility of false negativity on decalcified specimens Calvin Sousa DO LAB PATHOLOGY ORDERABLES Final Result PATHOLOGY [facility] ([facility]) [address] [place] [address] * POCT glucose (05/02/2024 9:47 AM ASSISTANT INFANT TEACHER) Glucose, POC 114 70 - 199 mg/dL Blood 05/02/2024 9:47 AM ASSISTANT INFANT TEACHER 05/02/2024 9:47 AM ASSISTANT INFANT TEACHER Calvin Sousa DO LAB POCT ORDERABLES - DEVICE F inal Result Performing Organization Address [facility]/ZIP Co de Phone Number [facility] [address] [facility] Department [place] [address] * Colonoscopy (05/02/2024 8:50 AM ASSISTANT INFANT TEACHER) Anatomical Region Laterality Modality Other Narrative Procedure Note Calvin Sousa DO - 05/02/2024 8:50 AM CST [facility] Patient Name: Alisha Ireland Procedure Date: 05/02/2024 8:50 AM Date of : 1945 Admit Type: Outpatient Age: 78 Gender: Female Attending MD: Calvin Sousa D.O. Room: [facility] 3 Note Status: Finalized Patient Profile: Refer to note in patient chart for documentation of history and physical. Procedure: Colonoscopy Indications: High risk colon cancer surveillance: Personalhistory of colonic polyps, Last colonoscopy: 2018 Referring MD: Jason Kulkarni D.O. Providers: Calvin [...] under direct vision. The Pediatric Colonoscope PCF-H190L [id number] was introducedthrough the anus and advanced to [...] hemostatic clipwas successfully placed (MR conditional). Clip electronics utility worker: [employer]. There was no bleeding at the end of the procedure. A few diverticula were found in the sigmoid colon. Internal hemorrhoids were found. The hemorrhoids were small. No additional abnormalities were found on retroflexion. Electronically signed by Calvin Sousa M.D. Calvin Sousa D.O. 05/02/2024 10:30:37 AM Number of Addenda: 0 Note Initiated On: 05/02/2024 8:50 AM Procedure Code(s): --- Professional --- 34239, Colonoscopy, flexible; with removal of tumor(s), polyp(s), or other lesion(s) by snare technique --- Technical --- 16722, Colonoscopy, flexible; with removal of tumor(s), polyp(s), [...] perforation orabscess without bleeding CPT copyright 2020 [employer] [place] [employer]. All rights reserved. The codes documented in this report are preliminary and upon motor lodge clerk reviewmay be revised to meet current compliance requirements. Recognized by the [place] [employer] for promoting quality in endoscopy us Calvin Sousa DO ENDOSCOPY PROCEDURES Final Res ult * POCT hemoglobin A1c (04/24/2024 10:14 AM ASSISTANT INFANT TEACHER) Hemoglobin A1C, POC 7.6 4.0 - 5.6 % Blood 04/24/2024 10:1 4 AM ASSISTANT INFANT TEACHER Carlos Rodriguez DO POINT OF CARE TEST ORDERABL ES Final Result * Dexa Axial Skeleton Bone Density 1 or 2 Site (02/20/2024 3:06 PM ASSISTANT INFANT TEACHER) Anatomical Region Laterality Modality Body N/A Other 02/20/2024 9:0 6 PM ASSISTANT INFANT TEACHER Narrative 02/20/2024 9:07 PM ASSISTANT INFANT TEACHER EXAM DESCRIPTION: DEXA AXIAL SKELETON BONE DENSITY 1 OR MORE SITES REASON FOR STUDY: 78 y/o year old F with given history of: Menopause screening for osteoporosis Screening. Group Art Supervisor/Model: [employer] (S/N [id number]) CLINICAL INFORMATION: Current height: 63 inches Maximum [...] Og Rapp M.D. MF: SHIVA Report ID: [id number] Reading Location: [place] [address] Procedure Note Og Rapp MD - 02/20/2024 EXAM DESCRIPTION: DEXA AXIAL SKELETON BONE DENSITY 1 OR MORE SITES REASON FOR STUDY: 78 y/o year old F with given history of: Menopause screening for osteoporosis Screening. Group Art Supervisor/Model: [employer] (S/N [id number]) CLINICAL INFORMATION: Current height: 63 inches Maximum [...] Og Rapp M.D. MF: SHIVA Report ID: [id number] Reading Location: [place] [address] Bina Lugo NP IMG DXA PROCEDURES Final Res ult * [...] ORDERABLES Final R esult Performing Organization Address [facility] Co de Phone Number [place] [address] [address] [place], [place] [phone] * Hepatitis C antibody Blood (12/27/2023 4:00 PM CDT) Pathologist [facility] Hep C Ab Nonreactive Nonreactive Comment: Interpretive [...] was last revised on 2019. Blood 12/27/2023 4:0 0 PM CDT 12/27/2023 8:46 PM CDT Bina Lugo NP LAB MICROBIOLOGY - GENERAL O RDERABLES Final Result Performing Organization Address [facility] Co de Phone Number [place] [address] [place] [address] * Albumin Creatinine Ratio, Urine (12/27/2023 4:00 PM CDT) Pathologist [facility] Albumin Ur 23.1 mg/L Comment: Interpretive Data No reference range established. Current interpretive data was last revised 2018. Creatinine Ur 109.9 mg/dL JUAN M [place] Comment: Interpretive Data No reference range established. Current interpretive data was last revised 2018. Albumin Creatinine Ratio, Ur 21 1 - 29 mg/g JUAN M Urine 12/27/2023 4:00 PM CDT 12/27/2023 8:46 PM CDT us Bina Lugo NP LAB URINE ORDERABLES Final R esult JUAN [place] [address] [address] [place] [address] * Lipid panel (12/27/2023 4:00 PM CDT) [...] 3. Davis Raymond et al. NICK Cardiol. 2020 July 19;5(5):540-548. doi: 10.1001/[email or web address].2020.0013 Current Interpretive Data was last revised on 2023. Non-HDL Cholesterol 123 mg/dL JUAN M Comment: Interpretive Data Ages [...] on 2017. Chol/HDL ratio 3 JUAN M Blood 12/27/2023 4:00 PM CDT 12/27/2023 8:46 PM CDT us Bina M. [employer] INDUSTRIAL RETROFIT DESIGNER LAB BLOOD ORDERABLES Final R esult JUAN M [place] [address] Department [place] [address] from Last 3 Months or Most Recently Relevant to Health Maintenance Insurance IDPA [facility] MEDICARE ADVANTAGE Advance Directives For more information, please contact: [phone] * Full Code (Latest Code Status on File) Date Activated Date Inactivated Comments 05/02/2024 8:02 AM 05/02/2024 3:16 PM * Full Code Date Activated Date Inactivated Comments 05/02/2024 8:02 AM 05/02/2024 8:02 AM Care Teams Fruit Or Nut Farmworker Relationship Specialty Start Date End Date Mitchell Menadr MD [address] [facility] [address] [place] [address] PCP - General Family Practice 04/23/24
--- OUTSIDE RECORDS SUMMARY | 2024-06-11 12:12 | XMS_ITS | Clinical Summary ---
Author Organization [facility] [address] [place] [address] Address [address] [facility] 5[address] [place] [address] Care Team Providers Care Plant Mechanic Name Role Phone Mitchell Menard MD Primary [...] 01/17/2024 Assessment & Plan (03/30/2024 3:[address] MACHINE OPERATOR): - ADA/ heart healthy diet Assessment & Plan (01/17/2024 8:22 PM CDT): - ADA/heart healthy diet Diabetic peripheral neuropathy 01/17/2024 Assessment & Plan (03/30/2024 3:[address] MACHINE OPERATOR): - chronic, continue gabapentin Assessment & Plan [...] 01/02/2024 Assessment & Plan (03/30/2024 3:[address] MACHINE OPERATOR): - chronic; stable at goal of < [...] 01/02/2024 Assessment & Plan (03/30/2024 3:[address] MACHINE OPERATOR): - chronic; most recent hemoglobin A1c 7 [...] 01/02/2024 Assessment & Plan (03/30/2024 3:[address] MACHINE OPERATOR): - chronic; LDL 103, goal < 70 [...] Team Description 06/11/2024 10:54 AM CDT Emergency [facility] Emergency Department [address] [place] [address] 05/25/2024 9:[address] MACHINE OPERATOR Office Visit [facility] Specialist at [address] [place] [address] Sofie Saldivar NP 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) (Primary Dx); Hypertension associated with diabetes (HCC) 05/02/2024 11:[address] MACHINE OPERATOR - 05/02/2024 11:[address] MACHINE OPERATOR Surgery [address] [address] Calvin Sousa, COLON REMOVAL SNARE 05/02/2024 9:[address] MACHINE OPERATOR Anesthesia Event [address] [address] Jacobo Shaw MD McDowell, Missael Adams MD 05/02/2024 7:[address] MACHINE OPERATOR - 05/02/2024 11:[address] MACHINE OPERATOR Hospital Encounter [address] [address] Calvin Sousa DO History of colonic polyps; Encounter for screening colonoscopy Discharge Disposition: Discharge to home or self care 04/24/2024 11:[address] MACHINE OPERATOR Office Visit [facility] Primary Care at [address] [place] [phone] Mitchell Menard MD Controlled type 2 diabetes mellitus with complication, without long-term current use of insulin (HCC) (Primary Dx); Hypertension associated with diabetes (HCC); Diabetic peripheral neuropathy (HCC); Generalized osteoarthritis of multiple sites 04/24/2024 10:[address] MACHINE OPERATOR Office Visit [facility] Diabetes Endocrine Care at [address] [phone] Carlos Rodriguez DO Controlled type 2 diabetes mellitus with complication, without long-term current use of insulin (HCC) (Primary Dx); Hyperlipidemia associated with type 2 diabetes mellitus (HCC); Hypertension associated with diabetes (HCC) 04/18/2024 Telephone [facility] Primary Care at [address] [phone] Bina Lugo NP Medical Records Request 04/13/2024 1:[address] MACHINE OPERATOR Office Visit [facility] Specialist at [address] [phone] Sofie Saldivar NP 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) (Primary Dx); Unstable angina (HCC); Hypertension associated with diabetes (HCC) 03/23/2024 1:[address] MACHINE OPERATOR Office Visit [facility] Primary Care at [address] [phone] Bina Lugo NP Mild intermittent asthma without [...] cm (5' 2 ) 05/25/2024 10:[address] MACHINE OPERATOR Body Mass Index 29.26 05/25/2024 10:[address] MACHINE OPERATOR Plan of Treatment Health Maintenance Due Date [...] SURGICAL PATHOLOGY STAT 05/02/2024 11 :[address] MACHINE OPERATOR History of colonic polyps Encounter for screening colonoscopy COLON REMOVAL SNARE 05/02/2024 9:[address] MACHINE OPERATOR History of colonic polyps Encounter for screening colonoscopy POCT GLUCOSE DEVICE Routine 05/02/2024 9:[address] MACHINE OPERATOR COLONOSCOPY 05/02/2024 8:[address] MACHINE OPERATOR POCT HEMOGLOBIN A1C Routine 04/24/2024 10:[address] MACHINE OPERATOR Controlled type 2 diabetes mellitus with complication, without long-term current use of insulin (HCC) DEXA AXIAL SKELETON BONE DENSITY 1 OR MORE SITES Schedule Routine, Read Routine (OP Routine) 02/20/2024 3:[address] MACHINE OPERATOR Post-menopause HEPATITIS C ANTIBODY Routine 12/27/2023 4:00 [...] Results * Surgical pathology (05/02/2024 11:[address] MACHINE OPERATOR) Tissue (Polyp(s), colon/colorectal, esophageal, gastric) 05/02/2024 10:[address] MACHINE OPERATOR Narrative PATHOLOGY [facility] - 05/03/2024 10:[address] MACHINE OPERATOR EPIC results best viewed via link to PDF [facility] Department of Pathology [address] [place] [address] Note to Patients: This report may contain [...] Final Report Patient Name: ALISHA IRELAND Address: [address] [place] [address] Gender: F : 1945 (Age: 78) Service: Gastro Location: [facility] Hospital #: [id number] Patient Type: [facility] Taken: 05/02/2024 Received: 05/02/2024 Accessioned: 05/02/2024 Reported: [...] All in one cassette. Debbie Gutierrez R.N., Duncan/Ryann Coello M.D. REPORT IMAGES AND SCANNED DOCUMENTS, IF INCLUDED, ONLY VIEWABLE IN PDF VERSION OF REPORT The performance characteristics of some immunohistochemical stains, fluorescence in-situ hybridization tests and immunophenotyping by flow cytometry cited in this report (if any) were determined by the Surgical Pathology Department at [facility] as part of an ongoing research associate quality control qc program and in compliance with federally mandated [...] characteristics determined by the Surgical Pathology Department [facility]. It has not been cleared or approved by the U. S. Food and Drug Administration. Note for decalcified specimens: This assay has not been validated on decalcified tissues. Results should be interpreted with caution given the possibility of false negativity on decalcified specimens Calvin Sousa DO LAB PATHOLOGY ORDERABLES Final Result PATHOLOGY [facility] [address] [place] [address] * POCT glucose (05/02/2024 9:[address] MACHINE OPERATOR) Glucose, POC 114 70 - 199 mg/dL Blood 05/02/2024 9:[address] MACHINE OPERATOR 05/02/2024 9:[address] MACHINE OPERATOR Calvin Sousa DO LAB POCT ORDERABLES - DEVICE F inal Result JUAN M [facility]) [address] [facility] Department of Laboratories [place], [place] [id number] * Colonoscopy (05/02/2024 8:[address] MACHINE OPERATOR) Anatomical Region Laterality Modality Other Narrative Procedure Note Calvin Sousa DO - 05/02/2024 8:50 AM CST [facility] Patient Name: Alisha Ireland Procedure Date: 05/02/2024 8:50 AM Date of : 1945 Admit Type: Outpatient Age: 78 Gender: Female Attending MD: Calvin Sousa D.O. Room: [facility] RO[facility] 3 Note Status: Finalized Patient [...] under direct vision. The Pediatric Colonoscope [id number]-[id number] was introducedthrough the anus and advanced to [...] hemostatic clipwas successfully placed (MR conditional). Clip telephone claims representative: [employer]. There was no bleeding at the end of the procedure. A few diverticula were found in the sigmoid colon. Internal hemorrhoids were found. The hemorrhoids were small. No additional abnormalities were found on retroflexion. Electronically signed by Calvin Sousa M.D. Calvin Sousa D.O. 05/02/2024 10:30:37 AM Number of Addenda: 0 Note Initiated On: 05/02/2024 8:50 AM Procedure Code(s): --- Professional --- 26240, Colonoscopy, flexible; with removal of tumor(s), polyp(s), or other lesion(s) by snare technique --- Technical --- 78889, Colonoscopy, flexible; with removal of tumor(s), polyp(s), [...] perforation orabscess without bleeding CPT copyright 2020 [employer]. All rights reserved. The codes documented in this report are preliminary and upon supervisor gear repair reviewmay be revised to meet current compliance requirements. Recognized by the [employer] for promoting quality in endoscopy Calvin Sousa DO ENDOSCOPY PROCEDURES Final Res ult * POCT hemoglobin A1c (04/24/2024 10:[address] MACHINE OPERATOR) Hemoglobin A1C, POC 7.6 4.0 - 5.6 % Blood 04/24/2024 10:[address] MACHINE OPERATOR Carlos Rodriguez DO POINT OF CARE TEST ORDERABL ES Final Result * Dexa Axial Skeleton Bone Density 1 or 2 Site (02/20/2024 3:[address] MACHINE OPERATOR) Anatomical Region Laterality Modality Body N/A Other 02/20/2024 9:[address] MACHINE OPERATOR Narrative 02/20/2024 9:[address] MACHINE OPERATOR EXAM DESCRIPTION: DEXA AXIAL SKELETON BONE DENSITY 1 OR MORE SITES REASON FOR STUDY: 78 y/o year old F with given history of: Menopause screening for osteoporosis Screening. Numerical Control Lathe Operator/Model: [employer] [place] Discovery SL (S/N [id number]) CLINICAL INFORMATION: Current height: 63 inches Maximum [...] Og Rapp M.D. MF: SHIVA Report ID: [id number] Reading Location: [id number] Procedure Note Og Rapp MD - 02/20/2024 EXAM DESCRIPTION: DEXA AXIAL SKELETON BONE DENSITY 1 OR MORE SITES REASON FOR STUDY: 78 y/o year old F with given history of: Menopause screening for osteoporosis Screening. Numerical Control Lathe Operator/Model: [employer] (S/N [id number]) CLINICAL INFORMATION: Current height: 63 inches Maximum [...] Og Rapp M.D. MF: SHIVA Report ID: [id number] Reading Location: [place] [address] Bina Lugo NP IMG DXA PROCEDURES Final [...] BLOOD ORDERABLES Final R esult [place] [address] [address] Department [place] [address] [place] [address] * Hepatitis C antibody Blood [...] O RDERABLES Final Result Performing Organization Address [facility] Co de Phone Number JU[place] M [address] [place] [address] * Albumin Creatinine Ratio, Urine (12/27/2023 4:00 PM CDT) Albumin Ur 23.1 mg/L Comment: Interpretive Data No reference range established. Current interpretive data was last revised 2018. Creatinine Ur 109.9 mg/dL [facility] Comment: Interpretive Data No reference range established. Current interpretive data was last revised 2018. Albumin Creatinine Ratio, Ur 21 1 - 29 mg/g [facility] Urine 12/27/2023 4:00 PM CDT 12/27/2023 8:46 PM CDT Bina Lugo NP LAB URINE ORDERABLES Final R esult Performing Organization Address City/[facility] Hospital/ZIP Co de Phone Number [facility] [address] [place] [address] * Lipid panel (12/27/2023 4:00 PM CDT) Pathologist [facility] Cholesterol 174 30 - 199 mg/dL Comment: [...] BLOOD ORDERABLES Final R esult [place] [address] [address] Department [place] [address] from Last 3 Months or Most Recently Relevant to Health Maintenance Insurance IDPA [facility] MEDICARE [facility] Address: [address] [address] [place] [address] Advance Directives For more information, please contact: [phone] * Full Code (Latest Code Status on File) Date Activated Date Inactivated Comments 05/02/2024 8:02 AM 05/02/2024 3:16 PM * Full Code Date Activated Date Inactivated Comments 05/02/2024 8:02 AM 05/02/2024 8:02 AM Care Teams Plant Mechanic Relationship Specialty Start Date End Date Mitchell Menard MD [address] [facility] [address] [place] [address] PCP - General Family Practice 04/23/24
--- OUTSIDE RECORDS SUMMARY | 2024-06-11 12:12 | XMS_ITS | Encounter Summary ---
Author Organization [facility] Address [address] [place] [address] Care Team Providers Care Bioinformatics Assistant Name Role Phone Mitchell Menard MD Primary Care Provi grazyna Reason for Visit * Reason Comments Back Pain Encounter Details Date Type Department Care Team (Late st Contact Info) Description 06/11/2024 10:54 AM CDT Emergency [facility] Emergency Department [address] [place] [address] Social History Tobacco Use Types Packs/Day Years Used Date Smoking Tobacco: Never AUDIT-C Answer Date Recorded Q1: How often [...] on file Sexual Orientation Not on file documented as of this encounter Last Filed Vital Signs Vital Sign Reading Time Taken Comments Blood Pressure 139/73 06/11/2024 11:14 AM CDT Pulse 83 06/11/2024 11:14 AM CDT Temperature 36.6 C (97.8 F) 06/11/2024 11:14 AM CDT Respiratory Rate 18 06/11/2024 11:14 AM CDT Oxygen Saturation 99% 06/11/2024 11:14 AM CDT Inhaled Oxygen Concentration - - Weight 72.6 kg (160 lb) 06/11/2024 11:14 AM CDT Height - - Body Mass Index 29.26 05/25/2024 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 Pt states pain radiates to both hips. Pt denies injury or urinary symptoms. Pt states nothing makes it worse or better. documented in this encounter Plan of Treatment Not on file documented as of this encounter Visit Diagnoses Not on filedocumented in this encounter Care Teams Bioinformatics Assistant Relationship Specialty Start Date End Date Mitchell Menard MD [address] [address] PCP - General Family Practice 04/23/24 documented as of this encounter
== END 2024-06-11 10:29 | disposition left against medical advice (07) ==
DX: M54.50 Low back pain, unspecified (principal)
CPT/HCPCS: 99199

== ENCOUNTER 2024-11-05 01:53 | Emergency (ER) | payer MEDICARE, MEDICAID, SELFPAY ==
--- NOTE | ~2024-11-05 | CT_ITS ---
EXAM: CT brain wo con, CT cervical spine wo con - 11/05/2024 3:57 CDT HISTORY: 79 years old Female with fall COMPARISON: None available. PROCEDURE: CT of the head and cervical spine without contrast. Axial, sagittal and coronal reformat wally planes were evaluated. Automatic exposure control was used for this study. FINDINGS: CT HEAD: BRAIN PARENCHYMA: No acute hemorrhage. No mass effect or herniation. Plummer-white matter differentiatio n is maintained. Mild chronic volume loss. Scattered hypodensities in subcortical and periventricular white matter, likely representing chronic microvascular ischemic changes in this age group. Atherosc lerotic calcification of the intracranial vessels is noted. VENTRICLES/ EXTRA-AXIAL SPACES: No hydrocephalus or extra-axial fluid collection. EXTRACRANIAL STRUCTURES: No calvarial fracture. CT CERVICAL SPINE: No acute fracture or subluxation. Straightening of cervical lordosis, likely positional or may be rel ated to muscle spasm. Multilevel degenerative changes of the cervical spine include varying degrees o f disk space narrowing, endplate osteophytosis as well as facet and uncal arthropathy. Prevertebral s oft tissues are within normal limits. Visualized lung apices are clear. IMPRESSION: 1. No evidence for acute intracranial hemorrhage or calvarial fracture. 2. No evidence for cervical spine fracture or traumatic subluxation. 3. Multilevel degenerative changes of the cervical spine. Reviewed, dictated and finalized at location A. IMPRESSION: 1. No evidence for acute intracranial hemorrhage or calvarial fracture. 2. No evidence for cervical spine fracture or traumatic subluxation. 3. Multilevel degenerative changes of the cervical spine.
[2024-11-05 01:54] VITALS: BP 178/97; PULSE 106; RESP 16; TEMP 36.7; O2SAT 100
--- OUTSIDE RECORDS SUMMARY | 2024-11-05 01:56 | XMS_ITS | Clinical Summary ---
Author Organization [facility] [address] Address [address] [facility] [address] [place] [address] Care Team Providers Care Ve Teacher Name Role Phone Mitchell Menard MD Primary [...] complication, without long-term current use of insulin Take 1 tablet (81 mg total) by mouth daily Active losartan (COZAAR) 100 mg tabletIndicatio ns:Hypertension , essential Take 0.5 tablets (50 mg total) by mouth daily 90 tablet 1 4 025 Active nitroglycerin (NITROSTAT) 0.4 mg SL tabletIndicatio [...] by mouth daily 30 tablet 11 4 025 Active cetirizine (ZyrTEC) 10 mg tabletIndicatio ns:Seasonal allergies Take 1 tablet (10 mg total) by mouth daily as needed for allergies 90 tablet 4 4 025 Active fluticasone propionate (FLONASE) 50 mcg/actuation nasal [...] complication, without long-term current use of insulin 1 Device continuously Change sensor every 14 [...] by mouth daily 90 tablet 3 5 026 Active metFORMIN XR (GLUCOPHAGE XR) 500 mg 24 hr tablet Take 3 tablets (1,500 mg total) by mouth daily with breakfast 270 tablet 3 5 Active gabapentin (NEURONTIN) 300 mg capsuleIndicati ons:Diabetic peripheral neuropathy (HCC) Take 1 capsule (300 mg total) by mouth 3 (three) times a day 90 capsule 2 5 Active lidocaine (XYLOCAINE) 5 % ointment Apply topically 3 (three) times a day Massage into area of pain 3-4 times daily as directed. Collaborating physician Zion Naik MD 120 g 1 5 Active celecoxib (CeleBREX) 200 mg capsuleIndicati ons:Lumbar spondylosis Take 1 capsule (200 mg total) by mouth 2 (two) times a day P.r.n. pain and inflammation. Collaborating physician Zion Naik MD 30 capsule 5 Active traMADoL (ULTRAM) 50 mg tabletIndicatio ns:Lumbar spondylosis Take 1 tablet (50 mg total) by mouth every 8 (eight) hours as needed for pain P.r.n. pain not relieved by celecoxib alone. Take 500 mg of acetaminophen with each dose. Take with food. Collaborating physician Zion Naik MD 20 tablet 5 Active cephalexin (KEFLEX) 500 mg capsuleIndicati ons:Acute non-recurrent maxillary sinusitis Take 1 capsule (500 mg total) by mouth 3 (three) times a day for 10 days 30 capsule 5 025 Active Active Problems Problem Noted Date Diagnosed Date Acute non-recurrent maxillary sinusitis 11/02/19 25 Lumbar spondylosis 06/11/2024 Generalized osteoarthritis of multiple sites 06/2024 Unstable [...] 01/17/2024 Assessment & Plan (03/30/2024 3:10 PM FISHER SPEAR): - ADA/ heart healthy diet Assessment & Plan (01/17/2024 8:22 PM CDT): - ADA/heart healthy diet Diabetic peripheral neuropathy 01/17/2024 Assessment & Plan (03/30/2024 3:10 PM FISHER SPEAR): - chronic, continue gabapentin Assessment & Plan [...] 01/02/2024 Assessment & Plan (03/30/2024 3:05 PM FISHER SPEAR): - chronic; stable at goal of < [...] 01/02/2024 Assessment & Plan (03/30/2024 3:07 PM FISHER SPEAR): - chronic; most recent hemoglobin A1c 7 [...] 01/02/2024 Assessment & Plan (03/30/2024 3:10 PM FISHER SPEAR): - chronic; LDL 103, goal < 70 [...] Encounters Date Type Department Care Team Description 11/01/2024 3:00 PM CDT Office Visit [facility] Medical Group Primary Care at [address] [phone] Kasey Post NP Acute non-recurrent maxillary sinusitis (Primary Dx); Cough, unspecified type; Acute cough; Fatigue, unspecified type 11/01/[address] [facility] Medical Group Primary Care at [address] [phone] Mitchell Menard MD from Last 3 Months Immunizations Immunization Administration Dates Next Due Influenza LAIV (Nasal) 12/24/2022(Deferred: Mariana ent Refused) Influenza, Unspecified 04/24/2024(Deferr ed: Patient Refused),01/15/2023(Deferred: Patient Refused),12/28/2022(Deferred: Patient Refused),12/28/2022(Deferred: Patient Refused) Surgical History Surgery Date Site/Laterality Comments COLONOSCOPY ANGIOPLASTY BREAST SURGERY COLON SURGERY CATARACT EXTRACTION SECTION Medical History Medical History Date Comments Low bone mass HTN (hypertension) HLD (hyperlipidemia) DM (diabetes mellitus) Neuropathy Adenomatous colon polyp DJD (degenerative joint disease) CAD (coronary artery disease) Vitamin D deficiency Osteoporosis Anemia Heart disease Asthma Family History Medical History Relation Name Comments Diabetes Brother Arnav torres Alzheimer's disease Father Rohith torres Hearing loss Father Rohith torres Hypertension Father Rohith torres Memory loss Father Rohith torres Anemia Mother Pilar heather Cancer Mother Pilar heather Relation Name Status Comments Brother Arnav torres Alive Father Rohith torres Alive Mother Tia romero Alive Social History Tobacco Use Types Packs/Day Years Used Date Smoking Tobacco: Never Smokeless Tobacco: Never Tobacco Cessation:Counseling Given: Not Answered [...] making you feel afraid or unsafe? Denies 06/11/2024 Comments Unknown Sex and Gender Information Value Date Recorded Sex Assigned at Not on file Legal Sex Female 2:41 PM CDT Gender Identity Not on file Sexual Orientation Not on file Obstetrics History Last Filed Vital Signs Vital Sign Reading Time Taken Comments Blood Pressure 112/58 11/01/2024 3:04 PM CDT Pulse 96 11/01/2024 3:04 PM CDT Temperature 36.8 C (98.3 F) 11/01/2024 3:04 PM CDT Respiratory Rate 20 11/01/2024 3:04 PM CDT Oxygen Saturation 98% 11/01/2024 3:04 PM CDT Inhaled Oxygen Concentration - - Weight 70.8 kg (156 lb) 11/01/2024 3:04 PM CDT Height 157.5 cm (5' 2) 11/01/2024 3:04 PM CDT Body Mass Index 28.53 11/01/2024 3:04 PM CDT Plan of Treatment Health Maintenance Due Date Last Done Comments Dilated Eye Exam 1945 DTaP/Tdap/Td Vaccine (1 - Tdap) 1956 Pneumococcal vaccine 65+ (1 of 2 - PCV) 1964 Zoster Vaccine (1 of 2) 09/08/1995 Well Visit 65+ 2010 Influenza Vaccine (#1) 2024 Albumin Creatinine Ratio, Urine 12/26/2024 Lipid Panel 12/26/2024 12/27/2023, 04/2 11/2023, 11/15/2019, Additional history exists eGFR 12/26/2024 12/27/2023 Foot Exam 01/16/2025 01/17/2024 Hemoglobin A1C 01/23/2025 07/23/2024, 02/0 06/2024, 12/27/2023 Depression Screening 04/24/2025 04/24/2024, 12/27/19 Fall Risk Assessment 05/02/2025 05/02/2024, 12/27/19 Osteoporosis Screening-Bone Density Scan 02/19/2026 02/20/2024, 09/11/2020, 09/11/2020 Hepatitis B Screening Completed 12/27/2023 Hepatitis C Screening Completed 12/27/2023 Procedures Procedure Name Priority Date/Time Associated Diagnosis Comments POC INFLUENZA A/B, COVID-19 ANTIGEN Routine 11/01/2024 3:00 PM CDT Cough, unspecified type Acute cough POCT HEMOGLOBIN A1C Routine 07/23/2024 9:54 AM CDT Controlled type 2 diabetes mellitus with complication, without long-term current use of insulin (HCC) DEXA AXIAL SKELETON BONE DENSITY 1 OR MORE SITES Schedule Routine, Read Routine (OP Routine) 02/20/2024 3:06 PM FISHER SPEAR Post-menopause HEPATITIS C ANTIBODY Routine 12/27/2023 4:00 [...] Recently Relevant to Health Maintenance Results * POC Influenza A/B, COVID-19 antigen (11/01/2024 3:00 PM CDT) Influenza A Ag, POC Negative Negative PCP [facility] Influenza B Ag, POC Negative Negative PCP [facility] COVID-19 Ag POC Presumptive Negative Presumptive Negative, Invalid PCP [facility] Nasal 11/01/2024 3:00 PM CDT Kasey Post DIRECT SUPPORT STAFF MEMBER POINT OF CARE TEST CARMEN [place] Final Result PCP N[facility] [place] [address] [place] [address], [facility] * (ABNORMAL) POCT hemoglobin A1c (07/23/2024 9:54 AM CDT) Hemoglobin A1C, POC 7.5(A) 4.0 - 5.6 % Blood 07/23/2024 9:54 AM CDT Carlos Rodriguez DO POINT OF CARE TEST ORDERABL ES Final Result * Dexa Axial Skeleton Bone Density 1 or 2 Site (02/20/2024 3:06 PM FISHER SPEAR) Anatomical Region Laterality Modality Body N/A Other 02/20/2024 9:06 PM FISHER SPEAR Narrative 02/20/2024 9:07 PM FISHER SPEAR EXAM DESCRIPTION: DEXA AXIAL SKELETON BONE DENSITY 1 OR MORE SITES REASON FOR STUDY: 78 y/o year old F with given history of: Menopause screening for osteoporosis Screening. 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 MF: SHIVA Report ID: [id number] Reading Location: [place] [address] Procedure Note Og Rapp MD - 02/20/2024 EXAM DESCRIPTION: DEXA AXIAL SKELETON BONE DENSITY 1 OR MORE SITES REASON FOR STUDY: 78 y/o year old F with given history of: Menopause screening for osteoporosis Screening. 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 MF: SHIVA Report ID: [id number] Reading Location: [place] [address] Bina Akiko Palomobeth RANKIN IMG DXA PROCEDURES Final Result * eGFR (12/27/2023 4:00 PM CDT) eGFR [...] Inclusion of Race in Diagnosing Kidney Disease, LYNDSAYSN 2020). The CKD-EPI equation should not be used for patients with unstable renal function and has not been validated in children and those over 70. Current interpretive data was last reviewed 2021. Blood 12/27/2023 4:00 PM CDT 12/27/2023 8:46 PM CDT Bina Lugo LAB BLOOD ORDERABLES Karen l Result Performing Organization Address [facility] de Phone Number [facility] [address] [place] [address] * Hepatitis C antibody Blood (12/27/2023 4:00 PM CDT) Pathologist [facility] Hep C Ab Nonreactive Nonreactive Comment: Interpretive [...] CDT Bina Lugo NP LAB MICROBIOLOGY - GENERA L ORDERABLES Final Result Performing Organization Address [facility] de Phone Number [facility] [address] [address] [facility] [place] [address] * Albumin Creatinine Ratio, Urine (12/27/2023 4:00 PM CDT) Pathologist [facility] Albumin Ur 23.1 mg/L Comment: Interpretive Data No reference range established. Current interpretive data was last revised 2018. Creatinine Ur 109.9 mg/dL [facility] Comment: Interpretive Data No reference range established. Current interpretive data was last revised 2018. Albumin Creatinine Ratio, Ur 21 1 - 29 mg/g JUAN M Urine 12/27/2023 4:00 PM CDT 12/27/2023 8:46 PM CDT Bina Lugo DIRECT SUPPORT STAFF MEMBER LAB URINE ORDERABLES Karen trent Result JUAN M [address] [address] Department [place] [address] * Lipid panel (12/27/2023 4:00 PM CDT) [...] us Bina Lugo NP LAB BLOOD ORDERABLES Karen newman Result JUAN M [address] [address] Department of Laboratories [place], [place] [id number] from Last 3 Months or Most Recently Relevant to Health Maintenance Insurance [facility] MEDICARE ADVANTAGE Advance Directives For more information, please contact: [phone] * Full Code (Latest Code Status on File) Date Activated Date Inactivated Comments 05/02/2024 8:02 AM 05/02/2024 3:16 PM * Full Code Date Activated Date Inactivated Comments 05/02/2024 8:02 AM 05/02/2024 8:02 AM Care Teams Ve Teacher Relationship Specialty Start Date End Date Mitchell Menard MD [address] [address] PCP - General Family Practice 04/23/24
--- NOTE | 2024-11-05 04:33 | PC.NURSE ---
Pt presents to ED due to c/o 4/10 back pain radiating to back, and dizziness. Per pt was getting out of bed then felt like someone pushed her towards the wall. Pt denies vision changes, PERRLA
[2024-11-05 04:37] VITALS: BP 178/92; PULSE 91; RESP 16; TEMP 36.6; O2SAT 99
--- OUTSIDE RECORDS SUMMARY | 2024-11-05 05:35 | XMS_ITS | Clinical Summary ---
Author Organization [facility] [address] Address [address] [facility] [address] [place] [address] Care Team Providers Care Hand Edge Bander Name Role Phone Mitchell Menard MD Primary [...] 01/17/2024 Assessment & Plan (03/30/2024 3:10 PM CENTRAL SERVICES TECH): - ADA/ heart healthy diet Assessment & Plan (01/17/2024 8:22 PM CDT): - ADA/heart healthy diet Diabetic peripheral neuropathy 01/17/2024 Assessment & Plan (03/30/2024 3:10 PM CENTRAL SERVICES TECH): - chronic, continue gabapentin Assessment & Plan [...] 01/02/2024 Assessment & Plan (03/30/2024 3:05 PM CENTRAL SERVICES TECH): - chronic; stable at goal of < [...] 01/02/2024 Assessment & Plan (03/30/2024 3:07 PM CENTRAL SERVICES TECH): - chronic; most recent hemoglobin A1c 7 [...] 01/02/2024 Assessment & Plan (03/30/2024 3:10 PM CENTRAL SERVICES TECH): - chronic; LDL 103, goal < 70 [...] Description 11/01/2024 3:00 PM CDT Office Visit [facility] Primary Care at [address] [address] Kasey Post NP Acute non-recurrent maxillary sinusitis (Primary Dx); Cough, unspecified type; Acute cough; Fatigue, unspecified type 11/01/2024 Nurse Triage [facility] Primary Care at [address] [address] Mitchell Menard MD from Last [...] Read Routine (OP Routine) 02/20/2024 3:06 PM CENTRAL SERVICES TECH Post-menopause HEPATITIS C ANTIBODY Routine 12/27/2023 4:00 [...] Nasal 11/01/2024 3:00 PM CDT Kasey Post SECURITY SYSTEM TECHNICIAN POINT OF CARE TEST CARMEN [place] Final Result PCP NENO GIMENEZ [address] [place] [address], [facility] * (ABNORMAL) POCT hemoglobin A1c (07/23/2024 9:54 AM CDT) Hemoglobin A1C, POC 7.5(A) 4.0 - 5.6 % Blood 07/23/2024 9:54 AM CDT Carlos Rodriguez DO POINT OF CARE TEST ORDERABL ES Final Result * Dexa Axial Skeleton Bone Density 1 or 2 Site (02/20/2024 3:06 PM CENTRAL SERVICES TECH) Anatomical Region Laterality Modality Body N/A Other 02/20/2024 9:06 PM CENTRAL SERVICES TECH Narrative 02/20/2024 9:07 PM CENTRAL SERVICES TECH EXAM DESCRIPTION: DEXA AXIAL SKELETON BONE DENSITY 1 OR MORE SITES REASON FOR STUDY: 78 y/o year old F with given history of: Menopause screening for osteoporosis Screening. 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 MF: SHIVA Report ID: [id number] Reading Location: [place] [address] Procedure Note Og Rapp MD - 02/20/2024 EXAM DESCRIPTION: DEXA AXIAL SKELETON BONE DENSITY 1 OR MORE SITES REASON FOR STUDY: 78 y/o year old F with given history of: Menopause screening for osteoporosis Screening. 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 MF: SHIVA Report ID: [id number] Reading Location: [place] [address] Bina Akiko Palomobeth RANKIN IMG DXA PROCEDURES [...] ORDERABLES Karen l Result Performing Organization Address [facility] de Phone Number [facility] [address] [address] [place] [address] * Hepatitis C antibody Blood (12/27/2023 4:00 PM CDT) Pathologist [facility] Hep C Ab Nonreactive Nonreactive Comment: Interpretive [...] L ORDERABLES Final Result Performing Organization Address [facility] de Phone Number [facility] [address] [address] [facility] [place] [address] * Albumin Creatinine Ratio, Urine (12/27/2023 4:00 PM CDT) Pathologist [facility] Albumin Ur 23.1 mg/L Comment: Interpretive Data No reference range established. Current interpretive data was last revised 2018. Creatinine Ur 109.9 mg/dL [facility] Comment: Interpretive Data No reference range established. Current interpretive data was last revised 2018. Albumin Creatinine Ratio, Ur 21 1 - 29 mg/g JUAN M Urine 12/27/2023 4:00 PM CDT 12/27/2023 8:46 PM CDT Bina Lugo SECURITY SYSTEM TECHNICIAN LAB URINE ORDERABLES Karen trent Result JUAN M [address] Department [place] [address] * Lipid panel (12/27/2023 4:00 PM CDT) [...] BLOOD ORDERABLES Karen newman Result JUAN M [address] Department of Laboratories [place], [place] [id number] from Last 3 Months or Most Recently Relevant to Health Maintenance Insurance [facility] MEDICARE ADVANTAGE Advance Directives For more information, please contact: [phone] * Full Code (Latest Code Status on File) Date Activated Date Inactivated Comments 05/02/2024 8:02 AM 05/02/2024 3:16 PM * Full Code Date Activated Date Inactivated Comments 05/02/2024 8:02 AM 05/02/2024 8:02 AM Care Teams Hand Edge Bander Relationship Specialty Start Date End Date Mitchell Menard MD [address] [address] PCP - General Family Practice 04/23/24
--- NOTE | 2024-11-05 05:44 | ED_ITS ---
HPI - Fall General Chief Complaint: Fall Stated Complaint: fell to right and hit head Time Seen by Provider: 11/05/24 05:04 History of Present Illness HPI Narrative: 79-year-old female with history of diabetes and hypertension presenting after a closed head injury. She states she got out of bed and fell to her right side after tripping over herself. She fell and hit the right side of her head against the wall. Did not lose consciousness. She takes a baby aspirin daily but no other anticoagulants. No nausea, vomiting or any other symptoms at this time. Ambulates with a steady gait. No neurological deficits. States she has chronic paresthesias in her bilateral lower extremities secondary to diabetes but no concerns or complaints. She has a small hematoma to the back of her right scalp but no other injuries. Awake alert answering all questions appropriately. Not in any distress. Related Data Allergies Allergy/AdvReac Type Severity Reaction Status Date / Time Penicillins Allergy Rash Verified 06/11/24 09:56 Review of Systems Review of Systems: As reviewed above in HPI Exam Narrative: GENERAL: [Well-appearing, well-nourished, and in no acute distress.] HEAD: [Normocephalic, atraumatic.] EYES: [PERRLA and EOMI.] ENT: Nares clear, no rhinorrhea or epistaxis. Mucous membranes moist. NECK: Posterior scalp small hematoma without any active bleeding or bruising. Otherwise supple with full range of motion. CHEST: [Clear to auscultation. No respiratory distress.] HEART: [Regular rate and rhythm]. No murmur heard. [Normal peripheral pulses.] ABDOMEN: [Soft, nondistended], [nontender], [No rigidity or guarding] EXTREMITIES: Normal range of motion. [No edema.] SKIN: Warm, dry, no rash. NEURO: [No focal deficits]. Alert and oriented [x3.] PSYCH: [Normal mood and affect.] Course Vital Signs Vital signs: Vital Signs Temperature 36.7 C 11/05/24 01:54 Pulse Rate 106 H 11/05/24 01:54 Respiratory Rate 16 11/05/24 01:54 Blood Pressure 178/97 H 11/05/24 01:54 Pulse Oximetry 100 11/05/24 01:54 Oxygen Delivery Room Air 11/05/24 01:54 Temperature 36.6 C 11/05/24 04:37 Pulse Rate 89 08/18/25 06:21 Respiratory Rate 18 11/05/24 06:21 Blood Pressure 158/83 H 11/05/24 06:21 Pulse Oximetry 99 11/05/24 06:21 Oxygen Delivery Room Air 11/05/24 01:54 MDM - Fall MDM Narrative Medical decision making narrative: 79-year-old female with history of diabetes and hypertension presenting after a closed head injury. She states she got out of bed and fell to her right side after tripping over herself. She fell and hit the right side of her head against the wall. Did not lose consciousness. She takes a baby aspirin daily but no other anticoagulants. No nausea, vomiting or any other symptoms at this time. Ambulates with a steady gait. No neurological deficits. States she has chronic paresthesias in her bilateral lower extremities secondary to diabetes but no concerns or complaints. She has a small hematoma to the back of her right scalp but no other injuries. Awake alert answering all questions appropriately. Not in any distress. Small scalp hematoma otherwise normal vital signs normal examination. No neurological dysfunction. Ambulatory with steady gait. Awake alert oriented. CT of the head and cervical spine ordered given patient's age and risk factors. Low suspicion acute traumatic injuries. CT confirmed no acute intracranial findings, no hemorrhage or any acute traumatic injuries. Safe for discharge home at this time. Given a small lidocaine patch to the area of where her scalp is tender as well as oral Tylenol. Patient is safe for discharge home at this time. Medical Records Attestation: I reviewed the patient's medical records. Imaging Data Attestation: I personally reviewed and interpreted this imaging study as follows: My impression: No traumatic injuries or intracranial process. Discharge Plan Discharge Clinical Impression: CHI (closed head injury) Patient Disposition: Home Condition: Stable Instructions: Antibiotic Form, Head Injury (ED), Contusion in Adults (ED) Additional Instructions: No signs of any injuries. Follow-up with regular doctor. Take Tylenol or ibuprofen for pain control. Return with any emergent concerns. Patient Language: Martiniquais Prescriptions: New acetaminophen [Tylenol Extra Strength] 500 mg tablet 1,000 mg PO TID PRN (Reason: pain) Qty: 30 0RF ibuprofen 600 mg tablet 600 mg PO TID PRN (Reason: pain) Qty: 20 0RF lidocaine 5 % adhesive patch,medicated 1 patch topical DAILY Qty: 15 0RF Rx Instructions: leave on most painful area for up to 12 hrs Follow-up/Referrals: PHYSICIAN,QUALITY ASSURANCE COACH [Primary Care Provider] - Time of Disposition: 05:39
[2024-11-05] MEDS: ACETAMINOPHEN 500 MG TABLET 1000 MG PO (06:08)
[2024-11-05] MEDS: LIDOCAINE 5% PATCH 1 PATCH TRANSDERM (06:09)
[2024-11-05 06:21] VITALS: BP 158/83; PULSE 89; RESP 18; O2SAT 99
== END 2024-11-05 06:23 | disposition home or self-care (01) ==
PROVIDERS: Emergency Provider Student in an Organized Health Care Education/Training Program
DX: S09.90XA Unspecified injury of head, initial encounter (principal); E11.9 Type 2 diabetes mellitus without complications; I10 Essential (primary) hypertension; W01.0XXA Fall on same level from slipping, tripping and stumbling without subsequent striking against object, initial encounter; Z79.82 Long term (current) use of aspirin
CPT/HCPCS: 70450; 72125; 99284; A9270

== ENCOUNTER 2025-02-09 21:11 | Emergency (ER) | payer MEDICARE, MEDICAID, SELFPAY ==
--- OUTSIDE RECORDS SUMMARY | 2023-12-09 05:03 | XMS_ITS | Continuity of Care Document ---
Author Organization [facility] Address [address] [facility] [address] [place] [address] Phone Care Team Providers Care Printing Grey Cloth Tender Name Role Phone Josie Pinedo MD Unavailable Unavailable Allergies, Adverse Reactions, Alerts Substance Reaction Status Criticality Penicillins Rash Active No Information Medications Medication Instructions Dosage Effective Dates (start - stop) Status Comments FREESTYLE KIM 3 SENSOR CHECK SUGARS 3-4 TIMES PER DAY , FLUCTUATING SUGARS CHANGE EVERY 14 DAYS - Active JANUVIA 50 MG TABLET TAKE 1 TABLET BY MOUTH EVERY DAY - Active atorvastatin 40 mg tablet TAKE 1 TABLET (40 MG) BY MOUTH DAILY - Active LOSARTAN POTASSIUM 100 MG TAB TAKE 1/2 (HALF) TABLET (50 MG) BY MOUTH TWICE DAILY - Active METFORMIN HCL 500 MG TABLET TAKE 2 (1000MG) BY ORAL ROUTE 2 TIMES EVERY DAY WITH MORNING AND EVENING MEALS - Active ALBUTEROL HFA (PROVENTIL) INH TAKE 2 PUFFS BY MOUTH EVERY 4 TO 6 HOURS NEEDED - Active nitroglycerin 0.[address] 1 tablet by sublingual route at the 1st sign of attack; may repeat every 5 min until relief; if pain persists after 3 tablets in 15 min, prompt medical attention is recommended 0.4 MG - Active FREESTYLE KIM 3 SENSOR USE DIRECTED TO READ BLOOD GLUCOSE WITH SMARTPHONE - Active LOSARTAN POTASSIUM 50 MG ORAL TABLET TAKE 1/2 (HALF) TABLET (25 MG) BY MOUTH TWICE DAILY - Active FreeStyle Kim 2 [place] check sugars 3 times per day, has hypoglycemic episodes - Active True Metrix Glucose Test Strip check 1 by fingerstick route 3 times every day - Active E11.65-sr In-Check Dial Training Device needs incentive spirometer Dx pneumonia - Active Dx Covid pneumonia=sr Lancets,Thin 23 gauge check sugars once a day - Active E11.65-sr True Metrix Glucose Meter check sugars once a day - Active E11.65-sr BREO ELLIPTA 100-25 MCG INH INHALE 1 PUFF BY INHALATION ROUTE EVERY DAY AT THE SAME TIME EACH DAY - Active Dulera 100 mcg-5 mcg/actuation HFA aerosol inhaler inhale 2 puff by inhalation route 2 times every day in the morning and evening 2.00 puff - Active SYMBICORT 80-4.5 MCG INHALER TAKE 2 PUFFS BY MOUTH TWICE A DAY IN THE MORNING AND IN THE EVENING - Active Ventolin HFA 90 mcg/actuation aerosol inhaler inhale 2 puff by inhalation route every 4 - 6 hours as needed - Active Aspir-81 81 mg Tab take 1 tablet (81MG) by oral route every day - Active FREESTYLE KIM 3 SENSOR CHECK SUGARS 3-4 TIMES PER DAY , FLUCTUATING SUGARS CHANGE EVERY 14 DAYS - No Longer Active Procedures Procedure Date OFFICE VISIT/EST LEVEL III JENI/ARB THERAPY RXD/TAKEN HG A1C LEVEL < 7.0% LDL-C <100 MG/DL DIAST BP 80-89 MM HG SYST BP> = 140 MM HG6 IT RVW MEDS BY RX/DR IN [facility] MED LIST DOCD IN [facility] TOBACCO NON-USER PHQ2 Negative COLORECTAL CA SCREEN DOC REV SCREEN MAMMO DOC REV Substance Abuse Screening SARSCOV & INF VIR A&B AG IA Onsite May- OFFICE VISIT/EST LEVEL III JENI/ARB THERAPY RXD/TAKEN HG A1C LEVEL < 7.0% LDL-C <100 MG/DL DIAST BP < 80 MM HG SYST BP < 130 MM HG RVW MEDS BY RX/DR IN [facility] MED LIST DOCD IN [facility] TOBACCO NON-USER PHQ2 Negative COLORECTAL CA SCREEN DOC REV ULTRASOUND TRANSVAGINAL Ultrasound Pelvic- NON OB OFFICE VISIT/EST LEVEL IV JENI/ARB THERAPY RXD/TAKEN HG A1C LEVEL < 7.0% LDL-C <100 MG/DL DIAST BP < 80 MM HG SYST BP < 130 MM HG RVW MEDS BY RX/DR IN [facility] MED LIST DOCD IN [facility] TOBACCO NON-USER PHQ2 Negative COLORECTAL CA SCREEN DOC REV NuSwabVG [id number] CBC W/DIFF. Offsite Lab METABOLIC PANEL Offsite Lab LIPID PANEL Offsite Lab TSH Offsite Lab T-4 FREE Offsite Lab GLYCOHEMOGLOBIN(A1C) Offsite Lab 2022 OFFICE VISIT/EST LEVEL IV JENI/ARB THERAPY RXD/TAKEN HG A1C LEVEL 7.0-8.0% DIL RETINA WITHOUT RETINOPATHY LDL-C <100 MG/DL DIAST BP < 80 MM HG May-31-2023 SYST BP < 130 MM HG RVW MEDS BY RX/DR IN [facility] MED LIST DOCD IN [facility] TOBACCO NON-USER PHQ2 Negative COLORECTAL CA SCREEN DOC REV Substance Abuse Screening CBC W/DIFF. Offsite Lab METABOLIC PANEL Offsite Lab GLYCOHEMOGLOBIN(A1C) Onsite Lab LIPID PANEL Offsite Lab OFFICE VISIT/EST LEVEL III Rec JENI/ARB HG A1C LEVEL < 7.0% LDL-C <100 MG/DL NEG MICROALBUMINURIA REV DIAST BP < 80 MM HG SYST BP < 130 MM HG Medication Reviewed TOBACCO NON-USER PHQ2 Negative OFFICE VISIT/EST LEVEL III Rec JENI/ARB HG A1C LEVEL < 7.0% LDL-C <100 MG/DL NEG MICROALBUMINURIA REV DIAST BP < 80 MM HG SYST BP < 130 MM HG TOBACCO NON-USER PHQ2 Negative CBC W/DIFF. METABOLIC PANEL LIPID PANEL T-4 FREE TSH GLYCOHEMOGLOBIN(A1C) URINE MICROALBUMIN OFFICE VISIT/EST LEVEL IV Rec JENI/ARB HEMOGLOBIN A1C LEVEL > 9.0% DIAST BP 80-89 MM HG SYST BP < 130 MM HG TOBACCO NON-USER PHQ2 Negative Diab manage trn per indiv (copay) TeleHealth Visit Diab manage trn per indiv (copay) TeleHealth Visit Diab manage trn per indiv (copay) CBC W/DIFF. METABOLIC PANEL GLYCOHEMOGLOBIN(A1C) OFFICE VISIT/EST LEVEL IV TRANS CARE MGMT 7 DAY DISCH Rec JENI/ARB HG A1C LEVEL 7.0-8.0% DIAST BP < 80 MM HG SYST BP < 130 MM HG Medication Reviewed PHQ2 Negative OFFICE VISIT/EST LEVEL III Rec JENI/ARB DIAST BP < 80 MM HG SYST BP> = 140 MM HG6 IT Medication Reviewed PHQ2 Negative PREV.VISIT/EST.65 & OLDER Rec JENI/ARB DIAST BP < 80 MM HG SYST BP> = 140 MM HG6 IT Medication Reviewed TOBACCO NON-USER PHQ2 Negative CA screen;pelvic/breast exam OFFICE VISIT/EST LEVEL III Rec JENI/ARB DIAST BP> = 90 MM HG SYST BP> = 140 MM HG6 IT Medication Reviewed TOBACCO NON-USER PHQ2 Negative COLORECTAL CA SCREEN DOC REV SCREEN MAMMO DOC REV Substance Abuse Screening OFFICE VISIT/EST LEVEL III Rec JENI/ARB LDL-C>= 130 MG/DL Diastolic BP Less Than 90 Systolic BP Equal Or Greater Than 140 Oc Medication Reviewed TOBACCO NON-USER PHQ2 Negative Annual Well Visit PPPS Subsequent Visit Rec JENI/ARB Diastolic BP Less Than 90 Systolic BP Less Than 140 Medication Reviewed IMMUNIZATION ADM/SNGL TDAP (7+ Yrs) (3) (C) CBC W/DIFF. METABOLIC PANEL: CHEM LIPID PANEL T-4 FREE TSH OFFICE VISIT/EST LEVEL III Rec JENI/ARB Medication Reviewed TOBACCO NON-USER PHQ2 Negative OFFICE VISIT/EST LEVEL III Medication Reviewed OFFICE VISIT/EST LEVEL III OFFICE VISIT/EST LEVEL III OFFICE VISIT/EST LEVEL IV OFFICE VISIT/EST LEVEL III OFFICE VISIT/EST LEVEL III PREV.VISIT/EST.65 & OLDER Thin Prep Pap Smear PAP SMEAR HANDLING OFFICE VISIT/EST LEVEL III OFFICE VISIT/EST LEVEL III OFFICE VISIT/EST LEVEL IV Thin Prep Pap Smear OFFICE VISIT/EST LEVEL III OFFICE VISIT/EST LEVEL III OFFICE VISIT/EST LEVEL IV OFFICE VISIT/EST LEVEL IV METABOLIC PANEL: CHEM LIPID PANEL OFFICE VISIT/EST LEVEL IV THIN PREP Advance Directives Directive Yes / No Effective Date File Name No Information Encounters Encounter Description Practice Location Reason(s) For Visit Diagnoses Date Provider Providers Copied on Encounter [facility], [address] [facility] [address] [facility], [place], [place], [id number], [place] tel:[phone] [facility] No Information 4 Khris Galindo. [address] [facility] , [address], [place], [address], [place]. tel:[phone] [facility], [address], [place], [place], [address], [place] tel:[phone] [facility] No Information 0 4 Khris Galindo. [address] [facility] , [address], [place], [address], [place]. tel:[phone] [facility], [address], [place], [place], [address], [place] tel:[phone] [facility] No Information 0 4 Sarah Mcconnell. [address], [place], [place], [address], [place]. tel:[phone] [facility], [address], [place], [place], [address], [place] tel:[phone] [facility] No Information 4 Khris Galindo. [address] [facility] , [address], [place], [address], [place]. tel:[phone] [facility], [address], [place], [place], [address], [place] tel:[phone] [facility] No Information 4 Khris Galindo. [address], [place], [address], [place]. tel:[phone] [facility], [address], [place], [place], [address], [place] tel:[phone] [facility] No Information 4 Khris Galindo. [address] [facility] , [address], [place], [address], [place]. tel:[phone] OFFICE VISIT/EST LEVEL III [facility], [address], [place], [place], [address], [place] tel:[phone] [facility] URI (chief complaint) Dietary counseling and surveillanceP ersistent coughBody mass index (BMI) 28.0-28.9, adult May- 4 Sarah Mcconnell. [address] [facility] [address], [place], [place], [address], [place]. tel:[phone] Referring Provider: Enedina Smith CNP, [address] [facility] [address], [place], [address] . tel:[phone] OFFICE VISIT/EST LEVEL III [facility], [address], [place], [place], [address], [place] tel:[phone] [facility] supervisor Follow up (chief complaint) Dietary counseling and surveillanceI ntramural uterine fibroidBody mass index (BMI) 28.0-28.9, adult 3 Anthony Medley. [address] [facility] [address] , [address], [place], [place], [address], [place]. tel:[phone] [facility], [address], [place], [place], [address], [place] tel:[phone] [facility] No Information 3 Anthony Medley. [address], [place], [place], [address], [place]. tel:[phone] OFFICE VISIT/EST LEVEL IV [facility], [address], [place], [place], [address], [place] tel:[phone] [facility] supervisor Follow Up of ER follow up (chief complaint) Dietary counseling and surveillanceS creening for breast cancerUterine massBody mass index (BMI) 28.0-28.9, adult Feb- 3 Anthony Medley. [address], [address], [place], [place], [address], [place]. tel:[phone] [facility], [address], [place], [place], [address], [place] tel:[phone] [facility] No Information 3 Khris Galindo. [address] [facility] , [address], [place], [address], [place]. tel:[phone] OFFICE VISIT/EST LEVEL IV [facility], [address], [place], [place], [address], [place] tel:[phone] [facility] Follow Up of diabetes (chief complaint)Fol low Up of hyperlipidemi a (chief complaint)Fol low Up of hypertension (chief complaint) Dietary counseling and surveillanceT ype 2 diabetes mellitus without complications Essential (primary) hypertensionH yperlipidemia , unspecified hyperlipidemi a typeBody mass index (BMI) 27.0-27.9, adult July- 3 Khris Galindo. [address] [facility] , [address], [place], [place], [facility], [place]. tel:[phone] [facility], [address] [facility] [address], [place], [place], [address], [place] tel:[phone] [address] No Information 3 Khris Galindo. [address] [facility] , [address], [place], [facility], [place]. tel:[phone] [facility], [address] [facility] [address], [place], [place], [address], [place] tel:[phone] [facility] No Information 3 Khris Galindo. [address] [facility] , [address], [place], [facility], [place]. tel:[phone] [facility], [address] [facility] [address], [place], [place], [address], [place] tel:[phone] [place] [address] No Information 3 Khris Galindo. [address] [facility] , [address], [place], [address], [place]. tel:[phone] OFFICE VISIT/EST LEVEL III [facility], [address] [facility] [address], [place], [place], [address], [place] tel:[phone] [facility] Diabetes (follow up) (chief complaint)med ications (chief complaint) Dietary counseling and surveillanceT ype 2 diabetes mellitus without complications Body mass index (BMI) 28.0-28.9, adult 2 [facility] Evette. [address] [facility] [address] , [address], [place], [place], [address], [place]. tel:[phone] [facility], [address] [facility] [address], [place], [place], [address], [place] tel:[phone] [facility] No Information 2 Khris Galindo. [address] [facility] , [address], [place], [address], [place]. tel:[phone] OFFICE VISIT/EST LEVEL III [facility], [address] [facility] [address], [place], [place], [address], [place] tel:[phone] [facility] forms (chief complaint) Dietary counseling and surveillanceP hysical examBody mass index (BMI) 27.0-27.9, adult 2 [facility] Evette. [address] [facility] , [address], [place], [place], [address], [place]. tel:[phone] [facility], [address] [facility] [address], [place], [place], [address], [place] tel:[phone] [facility] Type 2 diabetes mellitus without complications Essential (primary) hypertension 2 Khris Galindo. [address] [facility] , [address], [place], [address], [place]. tel:[phone] OFFICE VISIT/EST LEVEL IV [facility], [address] [facility] [address], [place], [place], [address], [place] tel:[phone] [facility] diabetes (chief complaint)has covid symptoms on and off (chief complaint)has a bulge in rectal area when she strains (chief complaint) Dietary counseling and surveillanceT ype 2 diabetes mellitus without complication, with long-term current use of insulinEssent ial hypertensionH yperlipidemia , unspecified hyperlipidemi a typeBody mass index (BMI) 27.0-27.9, adult 2 Khris Galindo. [address] [facility] , [address], [place], [address], [place]. tel:[phone] [facility], [address] [facility] [address], [place], [place], [address], [place] tel:[phone] [facility] Type 2 diabetes mellitus without complication, with long-term current use of insulin 2 Khris Galindo. [address] [facility] [address] , [address], [place], [address], [place]. tel:[phone] [facility], [address] [place] [address] [address], [place], [place], [address], [place] tel:[phone] [facility] diabetes (chief complaint) Type 2 diabetes mellitus without complication, with long-term current use of insulin 2 Christo Alas. [address] [facility] [address] , [address], [place], [place], [address], [place]. tel:[phone] [facility], [address] [facility] [address], [place], [place], [address], [place] tel:[phone] [facility] diabetes (chief complaint) Type 2 diabetes mellitus without complication, with long-term current use of insulin 1 Khris Galindo. [address] [facility] [address] , [address], [place], [address], [place]. tel:[phone] [facility], [address] [facility] [address], [place], [place], [address], [place] tel:[phone] [facility] No Information 1 Khris Galindo. [address] [facility] [address] , [address], [place], [address], [place]. tel:[phone] OFFICE VISIT/EST LEVEL IV [facility], [address] [facility] [address], [place], [place], [address], [place] tel:[phone] [facility] HDV (chief complaint) Dietary counseling and surveillanceH ospital discharge follow-upPneu monia due to COVID-19 virusPneumoni a due to coronavirus disease 2019Type 2 diabetes mellitus without complication, with long-term current use of insulinLong term (current) use of insulinBody mass index (BMI) 28.0-28.9, adult Dec- 1 Khris Galindo. [address], [place], [address], [place]. tel:[phone] [facility], [address] [facility] [address], [place], [place], [address], [place] tel:[phone] [facility] No Information 1 Khris Galindo. [address], [place], [address], [place]. 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 [address] [facility] [address] [facility], [place], [place], [address], [place]. 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 [address] [facility] [address] [place] [address], [id number], [place]. tel:[phone] OFFICE VISIT/EST LEVEL III [facility], [address] [facility] [address], [place], [place], [address], [place] tel:[phone] [facility] sinusitis (chief complaint) Dietary counseling and surveillanceA cute non-recurrent sinusitis, unspecified locationBody mass index (BMI) 31.0-31.9, adult Apr-0 1-202 1 Hong Tripp. [address] [facility] [address] , [address], [place], [facility], [place]. tel:[phone] [facility], [address] [facility] [address], [place], [place], [address], [place] tel:[phone] [facility] No Information Sep-0 6-202 0 Khris Galindo. [address] [facility] , [address], [place], [address], [place]. tel:[phone] [facility], [address] [facility] [address], [place], [place], [address], [place] tel:[phone] [facility] No Information Apr-0 8-202 0 Khris Galindo. [address] [facility] [address] , [address], [place], [address], [place]. tel:[phone] [facility], [address] [facility] [address], [place], [place], [address], [place] tel:[phone] [facility] No Information Mar-0 1-202 0 Khris Galindo. [address] [facility] [address] , [address], [place], [address], [place]. tel:[phone] OFFICE VISIT/EST LEVEL III [facility], [address] [facility] [address], [place], [place], [address], [place] tel:[phone] [facility] Right foot pain (chief complaint) Dietary counseling and surveillanceR ight foot painEssential hypertensionB leyla mass index (BMI) 31.0-31.9, adult Oct-2 9-201 9 [facility] [address], [place], [place], [address], [place]. tel:[phone] [facility], [address] [facility] [address], [place], [place], [address], [place] tel:[phone] [facility] medicare preventive (chief complaint) Dietary counseling and surveillanceM edicare annual wellness visit, subsequentEss ential (primary) hypertensionH yperlipidemia , unspecified hyperlipidemi a typeS/P angioplastySc reen for colon cancerScreeni ng for breast cancerBody mass index (BMI) 31.0-31.9, adult - 9 Khris Galindo. [address], [address], [place], [address], [place]. tel:[phone] OFFICE VISIT/EST LEVEL III [facility], [address] [facility] [address], [place], [place], [address], [place] tel:[phone] [facility] Pre-Op Physical (chief complaint) Ptosis of both eyelidsPre-op examBody mass index (BMI) 30.0-30.9, adult - 8 EpiEP BAR[employer] MANAGER Mary. [address] [facility], [address], [place], [address], [place]. tel:[phone] OFFICE VISIT/EST LEVEL III [facility], [address] [facility] [address], [place], [place], [address], [place] tel:[phone] [facility] Pre-op (chief complaint) Pre-op examCataract of left eye, unspecified cataract typeBody mass index (BMI) 29.0-29.9, adult - 7 Epi[employer] BAR[employer] SH[employer] MANAGER Mary. [address] [facility], [address], [place], [address], [place]. tel:[phone] OFFICE VISIT/EST LEVEL III [facility], [address] [facility] [address], [place], [place], [address], [place] tel:[phone] [facility] pe medicine man (chief complaint) Essential (primary) hypertensionH yperlipidemia , unspecified hyperlipidemi a typeMild intermittent asthma without complication 7 Karla BARBER SHOP MANAGER Mary. [address], [address], [place], [address], [place]. tel:[phone] OFFICE VISIT/EST LEVEL III [facility], [address] [facility] [address], [place], [place], [address], [place] tel:[phone] [facility] Cough (chief complaint) BronchitisAcu te maxillary sinusitis, recurrence not specified Nov3 0- 5 Khris Galindo. [address], [place], [facility], [place]. tel:[phone] OFFICE VISIT/EST LEVEL IV [facility], [address] [facility] [address], [place], [place], [address], [place] tel:[phone] [facility] knee surgery (chief complaint) No Information May-0 - 5 Hong Tripp. [address], [address], [place], [facility], [place]. tel:[phone] OFFICE VISIT/EST LEVEL III [facility], [address] [facility] [address], [place], [place], [address], [place] tel:[phone] [facility] Shoulder Pain (chief complaint) No Information May-2 4 No Information OFFICE VISIT/EST LEVEL III [facility], [address] [facility] [address], [place], [place], [address], [place] tel:[phone] [facility] paperwork (chief complaint) No Information 3 Khris Galindo. [address], [address], [place], [address], [place]. tel:[phone] PREV.VISIT/E [facility].65 & OLDER [facility], [address] [facility] [address], [place], [place], [address], [place] tel:[phone] [facility] [facility] supervisor Practice Old Pap (chief complaint) No Information - 3 Naida Terrazas. [address], [address], [place], [place], [address], [place]. tel:[phone] OFFICE VISIT/EST LEVEL III [facility], [address], [place], [place], [address], [place] tel:[phone] [facility] physical (chief complaint) No Information Rudy-0 5- 3 Khris Galindo. [address], [address], [place], [address], [place]. tel:[phone] OFFICE VISIT/EST LEVEL III [facility], [address], [place], [place], [address], [place] tel:[phone] [facility] URI (chief complaint) No Information Jan-0 8- 2 No Information OFFICE VISIT/EST LEVEL IV [facility], [address] [place] [address] [address], [place], [place], [address], [place] tel:[phone] [facility] supervisor Practice Old annual visit (chief complaint) No Information Nov- 3- 1 Naida Terrazas. [address], [address], [place], [place], [address], [place]. tel:[phone] OFFICE VISIT/EST LEVEL III [facility], [address] [place] [address] [address], [place], [place], [address], [place] tel:[phone] [facility] physical exam for foster care (chief complaint) No Information Sep-0 - 1 Khris Galindo. [address], [address], [place], [address], [place]. tel:[phone] OFFICE VISIT/EST LEVEL III [facility] [address], [place], [place], [address], [place] tel:[phone] [facility] Family Practice No Information Oct- 4 9 No Information OFFICE VISIT/EST LEVEL IV [facility], [address] [place] [address] [address], [place], [place], [id number], [place] tel:[phone] [facility] No Information 0-200 9 No Information OFFICE VISIT/EST LEVEL IV [facility], [address] [place] [address] [address], [place], [place], [id number], tel:[phone] [facility] No Information No Information OFFICE VISIT/EST LEVEL IV [facility], [address], [place], [place], [id number], tel:[phone] [facility] No Information 9 No Information Family History Family Member Type Diagnosis Age At Onset Father Problem (finding) hypertension Brother Problem (finding) Maternal history of josefina betes mellitus Son Problem (finding) asthma Mother Problem (finding) Leukemia Daughter Problem (finding) migraine Brother Problem (finding) asthma Immunizations Vaccine Date Status Comments Tdap (Adacel) administered Note: vis give n ; Source: New Immunization Record Payers Payer name Insurance type Covered alliance party ID Authoriza tion(s) [facility] Medicare Dual PPS CI [id number] [employer] CROSOVR MEDICARE PRIMARY [id number] Care [facility] NGS PPS MB [id number] [employer] CROSOVR MEDICARE PRIMARY [id number] Social History Type Description Quantity Date Captured Comments Sex Female Smoking Status No Information Sexual Orientation Straight or heterosexual Jun Gender Identity Female Chief Complaint And Reason For Visit No Information Reason For Referral Reason For Referral No Information Plan Of Treatment Date Type Action Status Goal Hemoglobin A1C. Due on due Goal Pneumovax. Due on 4 due Goal Pain Screening. Due on due Goal Foot exam. Due on 4 due Goal Tdap. Due on due Goal DEXA scan. Due on 3 due Goal Annual Wellness Exam. Due on due Goal HCV. Due on due Goal Creatinine. Due on 24 due Goal Vitamin B12. Due on 024 due Goal Low dose CT. Due on due Goal Pneumococcal vac cine. Due on due Goal H&P. Due on due Goal Lipid panel. Due on due Goal Zoster vaccine ( ). Due on due Goal Zoster vaccine ( ). Due on due Goal Dilated Retina Exam. Due on due Goal Fundus photograp hy of eye. Due on due Goal Cognitive assess ment. Due on due Goal Potassium. Due on 4 due Goal Urine microalbumin. Due on due Goal Lifestyle education regardin g diet completed Goal Pain Screening. Due on due Goal Zoster vaccine ( ). Due on due Goal Lipid panel. Due on due Goal HCV. Due on due Goal Cognitive assess ment. Due on due Goal Vitamin B12. Due on due Goal H&P. Due on due Goal Low dose CT. Due on due Goal Creatinine. Due on due Goal Potassium. Due on due Goal Tdap. Due on due Goal Dilated Retina Exam. Due on due Goal Pneumovax. Due on 3 due Goal Urine microalbumin. Due on due Goal Hemoglobin A1C. Due on due Goal Influenza vaccine. Due on due Goal Foot exam. Due on due Goal DEXA scan. Due on 3 due Goal Zoster vaccine ( ). Due on due Goal Fundus photograp hy of eye. Due on due Goal Pneumococcal vac cine. Due on due Goal Lifestyle education regardin g diet completed Goal DEXA scan. Due on due Goal Low dose CT. Due on due Goal Cognitive assess ment. Due on due Goal Potassium. Due on 4 due Goal Zoster vaccine ( ). Due on due Goal HCV. Due on due Goal H&P. Due on due Goal Pneumococcal vac cine. Due on due Goal Tdap. Due on due Goal Pneumovax. Due on due Goal Influenza vaccine. Due on due Goal Lipid panel. Due on 024 due Goal Zoster vaccine ( ). Due on due Goal Pain Screening. Due on due Goal Urine microalbumin. Due on due Goal Vitamin B12. Due on due Goal Fundus photograp hy of eye. Due on due Goal Hemoglobin A1C. Due on due Goal Creatinine. Due on due Goal Dilated Retina Exam. Due on due Goal Foot exam. Due on due Goal H&P. Due on due Goal Pain Screening. Due on due Goal Pneumococcal vac cine. Due on due Goal Influenza vaccine. Due on due Goal Zoster vaccine ( 1st). Due on due Goal DEXA scan. Due on due Goal Lipid panel. Due on 024 due Goal Pneumovax. Due on due Goal Zoster vaccine ( 2nd). Due on due Goal HCV. Due on due Goal Cognitive assess ment. Due on due Goal Low dose CT. Due on 023 due Goal Tdap. Due on due Goal Urine microalbumin. Due on due Goal Foot exam. Due on 3 due Goal Fundus photograp hy of eye. Due on due Goal Dilated Retina Exam. Due on due Goal Potassium. Due on 4 due Goal Vitamin B12. Due on 023 due Goal Creatinine. Due on due Goal Hemoglobin A1C. Due on due Goal DEXA scan. Due on due Goal Lipid panel. Due on due Goal Cognitive assess ment. Due on due Goal Zoster vaccine ( 1st). Due on due Goal Pneumovax. Due on due Goal HCV. Due on due Goal H&P. Due on due Goal Urine microalbumin. Due on due Goal Vitamin B12. Due on due Goal Pneumococcal vac cine. Due on due Goal Potassium. Due on 4 due Goal Tdap. Due on due Goal Low dose CT. Due on due Goal Hemoglobin A1C. Due on due Goal Creatinine. Due on 24 due Goal Zoster vaccine ( 2nd). Due on due Goal Dilated Retina Exam. Due on due Goal Fundus photograp hy of eye. Due on due Goal Foot exam. Due on 3 due Goal Lifestyle education regardin g diet completed Goal Lipid panel. Due on due Goal Pneumococcal vac cine. Due on due Goal HCV. Due on due Goal Low dose CT. Due on due Goal Zoster vaccine ( 2nd). Due on due Goal Hemoglobin A1C. Due on due Goal H&P. Due on due Goal Tdap. Due on due Goal Foot exam. Due on 3 due Goal Urine microalbumin. Due on F due Goal Cognitive assess ment. Due on due Goal Potassium. Due on 3 due Goal Pneumovax. Due on due Goal Dilated Retina Exam. Due on due Goal Fundus photograp hy of eye. Due on due Goal Zoster vaccine ( 1st). Due on due Goal Vitamin B12. Due on 023 due Goal DEXA scan. Due on 3 due Goal Creatinine. Due on due Goal Low dose CT. Due on 022 due Goal Cognitive assess ment. Due on due Goal DEXA scan. Due on 3 due Goal Zoster vaccine ( 2nd). Due on due Goal Influenza vaccine. Due on Oc due Goal Foot exam. Due on due Goal Lipid panel. Due on 023 due Goal Pneumococcal vac cine. Due on due Goal Tdap. Due on due Goal Zoster vaccine ( 1st). Due on due Goal H&P. Due on due Goal HCV. Due on due Goal Creatinine. Due on due Goal Vitamin B12. Due on 022 due Goal Pneumovax. Due on 2 due Goal Dilated Retina Exam. Due on due Goal Potassium. Due on 3 due Goal Hemoglobin A1C. Due on due Goal Fundus photograp hy of eye. Due on due Goal Urine microalbumin. Due on due Goal Lifestyle education regardin g diet completed Goal HCV. Due on due Goal Zoster vaccine ( ). Due on due Goal Cognitive assess ment. Due on due Goal Hemoglobin A1C. Due on due Goal Dilated Retina Exam. Due on due Goal Pneumococcal vac cine. Due on due Goal DEXA scan. Due on 3 due Goal Foot exam. Due on 2 due Goal H&P. Due on due Goal Potassium. Due on 3 due Goal Creatinine. Due on due Goal Vitamin B12. Due on 022 due Goal Urine microalbumin. Due on due Goal Zoster vaccine ( ). Due on due Goal Fundus photograp hy of eye. Due on due Goal Low dose CT. Due on due Goal Pneumovax. Due on due Goal Tdap. Due on due Goal Lipid panel. Due on due Goal HCV. Due on due Goal Cognitive assess ment. Due on due Goal Lipid panel. Due on due Goal DEXA scan. Due on due Goal Pneumococcal vac cine. Due on due Goal H&P. Due on due Goal Zoster vaccine ( 1st). Due on due Goal Pneumovax. Due on due Goal Vitamin B12. Due on due Goal Zoster vaccine ( 2nd). Due on due Goal Creatinine. Due on due Goal Low dose CT. Due on due Goal Tdap. Due on due Goal Foot exam. Due on due Goal Urine microalbumin. Due on due Goal Fundus photograp hy of eye. Due on due Goal Potassium. Due on due Goal Hemoglobin A1C. Due on due Goal Dilated Retina Exam. Due on due Goal Lifestyle education regardin g diet completed Goal Lipid panel. Due on due Goal DEXA scan. Due on 3 due Goal H&P. Due on due Goal Low dose CT. Due on 022 due Goal Cognitive assess ment. Due on due Goal Pneumovax. Due on 2 due Goal Zoster vaccine ( ). Due on due Goal Zoster vaccine ( 1st). Due on due Goal Pneumococcal vac cine. Due on due Goal Influenza vaccine. Due on due Goal Tdap. Due on due Goal Potassium. Due on 2 due Goal Urine microalbumin. Due on due Goal Hemoglobin A1C. Due on due Goal Foot exam. Due on due Goal Creatinine. Due on due Goal Fundus photograp hy of eye. Due on due Goal Vitamin B12. Due on 022 due Goal Dilated Retina Exam. Due on due Goal Hemoglobin A1C. Due on due Goal Potassium. Due on 2 due Goal Dilated Retina Exam. Due on due Goal Foot exam. Due on 2 due Goal Urine microalbumin. Due on due Goal Creatinine. Due on due Goal Fundus photograp hy of eye. Due on due Goal Pneumovax. Due on 2 due Goal Vitamin B12. Due on due Goal Low dose CT. Due on due Goal H&P. Due on due Goal Cognitive assess ment. Due on due Goal Influenza vaccine. Due on due Goal Zoster vaccine ( ). Due on due Goal Zoster vaccine ( ). Due on due Goal DEXA scan. Due on 3 due Goal Pneumococcal vac cine. Due on due Goal Tdap. Due on due Goal Lipid panel. Due on 023 due Goal Dietary manageme nt education, guidance, and counseling completed Goal Mammogram. Due on 3 due Goal Colonoscopy. Due on 029 due Goal Zoster vaccine ( 1st). Due on due Goal DEXA scan. Due on 3 due Goal Pneumococcal vac cine. Due on due Goal Influenza vaccine. Due on due Goal Cognitive assess ment. Due on due Goal Lipid panel. Due on 020 due Goal Low dose CT. Due on 022 due Goal Zoster vaccine ( 2nd). Due on due Goal H&P. Due on due Goal Tdap. Due on due Goal Vitamin B12. Due on 022 due Goal Fundus photograp hy of eye. Due on due Goal Dilated Retina Exam. Due on due Goal Hemoglobin A1C. Due on due Goal Potassium. Due on 2 due Goal Foot exam. Due on due Goal Creatinine. Due on due Goal Urine microalbumin. Due on due Goal Pneumovax. Due on 2 due Goal Colonoscopy. Due on 029 due Goal Mammogram. Due on 3 due Goal Lipid panel. Due on 020 due Goal DEXA scan. Due on 3 due Goal Pneumococcal vac cine. Due on due Goal Low dose CT. Due on 022 due Goal Zoster vaccine ( 2nd). Due on due Goal Cognitive assess ment. Due on due Goal Influenza vaccine. Due on due Goal H&P. Due on due Goal Pneumovax. Due on 2 due Goal Foot exam. Due on 2 due Goal Creatinine. Due on due Goal Zoster vaccine ( 1st). Due on due Goal Potassium. Due on 2 due Goal Vitamin B12. Due on due Goal Urine microalbumin. Due on due Goal Fundus photograp hy of eye. Due on due Goal Dilated Retina Exam. Due on due Goal Hemoglobin A1C. Due on due Goal Tdap. Due on due Goal Colonoscopy. Due on 029 due Goal Mammogram. Due on 3 due Goal Cognitive assess ment. Due on due Goal Creatinine. Due on [address] Low dose [address]. Due on due Goal Potassium. Due on due Goal Pneumovax. Due on due Goal DEXA scan. Due on 3 due Goal Zoster vaccine ( ). Due on due Goal H&P. Due on due Goal Tdap. Due on due Goal Foot exam. Due on due Goal Hemoglobin A1C. Due on due Goal Urine microalbumin. Due on due Goal Dilated Retina Exam. Due on due Goal Influenza vaccine. Due on due Goal Vitamin B12. Due on due Goal Lipid panel. Due on due Goal Zoster vaccine ( 1st). Due on due Goal Pneumococcal vac cine. Due on due Goal Fundus photograp hy of eye. Due on due Goal Colonoscopy. Due on 029 due Goal Mammogram. Due on 3 due Goal Zoster vaccine ( 2nd). Due on due Goal Lipid panel. Due on 020 due Goal Tdap. Due on due Goal Zoster vaccine ( ). Due on due Goal H&P. Due on due Goal Foot exam. Due on due Goal Pneumovax. Due on due Goal Pneumococcal vac cine. Due on due Goal Urine microalbumin. Due on due Goal Hemoglobin A1C. Due on due Goal Creatinine. Due on due Goal Influenza vaccine. Due on due Goal Potassium. Due on due Goal Dilated Retina Exam. Due on due Goal Fundus photograp hy of eye. Due on due Goal Vitamin B12. Due on due Goal Low dose CT. Due on due Goal DEXA scan. Due on 3 due Goal Cognitive assess ment. Due on due Goal Vitamin B12. Due on due Goal Lipid panel. Due on due Goal Hemoglobin A1C. Due on due Goal Creatinine. Due on due Goal Foot exam. Due on due Goal Potassium. Due on due Goal Dilated Retina Exam. Due on due Goal Urine microalbumin. Due on O due Goal Fundus photograp hy of eye. Due on due Goal Influenza vaccine. Due on Oc due Goal Pneumococcal vac cine. Due on due Goal Cognitive assess ment. Due on due Goal H&P. Due on due Goal Zoster vaccine ( 2nd). Due on due Goal DEXA scan. Due on 3 due Goal Zoster vaccine ( 1st). Due on due Goal Low dose CT. Due on due Goal Tdap. Due on due Goal Pneumovax. Due on due Goal Lifestyle education regardin g diet completed Goal DEXA scan. Due on 3 due Goal Zoster vaccine ( 2nd). Due on due Goal Pneumovax. Due on due Goal Influenza vaccine. Due on Oc due Goal Zoster vaccine ( 1st). Due on due Goal Low dose CT. Due on due Goal Pneumococcal vac cine. Due on due Goal H&P. Due on due Goal Cognitive assess ment. Due on due Goal Lipid panel. Due on due Goal Tdap. Due on due Goal Zoster vaccine ( 2nd). Due on due Goal Tdap. Due on due Goal Lipid panel. Due on due Goal Pneumococcal vac cine. Due on due Goal Zoster vaccine ( ). Due on due Goal Cognitive assess ment. Due on due Goal Influenza vaccine. Due on due Goal Pneumovax. Due on due Goal Low dose CT. Due on due Goal DEXA scan. Due on 3 due Goal H&P. Due on due Goal Lifestyle education regardin g diet completed Goal Zoster vaccine ( ). Due on due Goal Influenza vaccine. Due on due Goal Mammogram. Due on 1 due Goal Colonoscopy. Due on due Goal Pneumococcal vac cine. Due on due Goal Lipid panel. Due on due Goal Fit test. Due on due Goal Tdap. Due on due Goal Cognitive assess ment. Due on due Goal Zoster vaccine ( 2nd). Due on due Goal Low dose CT. Due on due Goal DNA Cologuard. Due on due Goal Pneumovax. Due on due Goal Lifestyle education regardin g diet completed Goal Influenza vaccine. Due on due Goal Low dose CT. Due on due Goal Zoster vaccine ( ). Due on due Goal DNA Cologuard. Due on due Goal Lipid panel. Due on due Goal Pneumovax. Due on due Goal Fit test. Due on due Goal Colonoscopy. Due on 029 due Goal Tdap. Due on due Goal DEXA scan. Due on due Goal Zoster vaccine ( 2nd). Due on due Goal Mammogram. Due on due Goal Pneumococcal vac cine. Due on due Goal Cognitive assess ment. Due on due Goal Lifestyle education regardin g diet completed Goal Zoster vaccine ( 1st). Due on due Goal Pneumococcal vac cine. Due on due Goal Fit test. Due on due Goal Pneumovax. Due on [address] dose [address] Due on 020 due Goal Cognitive assess ment. Due on due Goal Influenza vaccine. Due on Ap due Goal DNA Cologuard. Due on due Goal DEXA scan. Due on 0 due Goal Mammogram. Due on 1 due Goal Colonoscopy. Due on due Goal Tdap. Due on due Goal DNA Cologuard. Due on due Goal Zoster vaccine ( 1st). Due on due Goal Pneumovax. Due on 9 due Goal Influenza vaccine. Due on Oc due Goal Low dose CT. Due on due Goal Fit test. Due on due Goal Pneumococcal vac cine. Due on due Goal Cognitive assess ment. Due on due Goal Tdap. Due on due Goal Colonoscopy. Due on due Goal DEXA scan. Due on 9 due Goal Mammogram. Due on 1 due Goal Lifestyle education regardin g diet completed Goal Cognitive assess ment. Due on due Goal Low dose CT. Due on due Goal Colonoscopy. Due on due Goal DEXA scan. Due on 9 due Goal Pneumovax. Due on 9 due Goal Prevnar. Due on due Goal Fit test. Due on due Goal HCV. Due on due Goal DNA Cologuard. Due on due Goal Tdap. Due on due Goal Pneumococcal vac cine. Due on due Goal Influenza vaccine. Due on due Goal Zostavax or Ari ngrix. Due on due Goal Lifestyle education regardin g diet completed Referral Ordered: Ultrasound Pelvic- NON OB ordered Referral Ordered: ULTRASOUND TRANSVAGINAL ordered Referral Referred To: [facility] Ordered: Referrals: Chronic Care Management. [facility] ordered Referral Ordered: CHEST X-RAY/2 VIEWS ordered Referral Referred To: [facility] [place] Ordered: Referrals: [facility] Education [facility] Training. [facility] Evaluate and treat ordered Referral Ordered: DEXA BONE DENSITY, AXIAL ordered Referral Ordered: FOOT XRAY/3+ VIEWS Right foot ordered Referral Referred To: Agatha Ruiz DPM [id number] [facility]
[address] [place], [phone] Ordered: Referrals: Podiatry. Agatha Ruiz DPM. Evaluate and treat ordered Referral Ordered: Screening Mammography,bilateral;Incl CAD ordered Referral Referred To: [facility] [address] [place] [address] [place], [phone] Ordered: Referrals: Allopathic & Osteopathic Physicians : Internal Medicine. [facility]. Evaluate and treat ordered Patient Education Learning About Low Blood Sugar (Hypoglycemia) in Diabetes completed Future Order: Lab Order CBC With Differential/Platelet ([id number]), Scheduled for: Ordered Future Order: Lab Order Comp. Me tabolic Panel (14) ([id number]), Scheduled for: Ordered History Of Present Illness Encounter Date Complaint History Of Prese nt Illness Comments: Has be en sick for 3 weeks. Went to hospital, had pneumonia. Was given antibiotic and finished it. URI Follow up Patient doing we ll since her last visit. Discussed that she has a small 2cm fibroid in the uterus. Her endometrium looks normal in a postmenopausal women and since she has never had postmenopausal bleeding, she does not require an EMB at this time. Advised pt to call office if she has any bleeding. She is agreeable to this She lost her mammogram order. Another will be given to her today Follow Up of ER follow up No VD, Fever, Chills, no sexually active Colonoscopy: previously 1.5 years agoMammogram: 2 years ago send order. Pt desires another mammogramOutside ER records reviewedCT scan abdomen and pelvis with contrast on 02/10/23 showed pelvis appears to be enhancement of the endometrial canal with rather prominent central hypoattenuation measuring as great as 1 x 2 cm. Another less well-defined hypoattenuating focus appears to involve the myometrium on the left side of the uterine body measuring 2.5 cm. Trace pelvic CDS ascites. Concern for endometritis or underlying endometrial neoplastic process. Pelvis US recommendedPt agreeable for pelvic US Follow Up of hyperlipidemia Reas ons for screening do not include alcohol use and tobacco use. Associated symptoms include fatigue. Pertinent negatives include abdominal pain, chest pain, edema and headache. Additional information: watching diet carefully. Follow Up of diabetes Managing w ith: Oral medications. Pertinent negatives include chest pain and dyspnea. Additional information: has a freestylelibre, watching diet and fluctuating sugars. Follow Up of hypertension Associ ated symptoms include fatigue. Pertinent negatives include chest pain, dyspnea and headache. Additional information: lost 6 lbs Comments: Pt is here to follow up on diabetes. She had been having low sugars that was keeping her awake at night. She is having a snack before bedtime for the last 3 weeks. She is not having low sugars anymore.Sugars have been running about 100 in the morning-130 in the morning. 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 Pt did stop fostering last year prior to having COVID. Pt is doing much better since that time. has a bulge in recta l area when she strains will do rectal exam has covid symptoms on and off diabetes Managing with: O ral medications. Pertinent negatives include chest pain and dyspnea. Additional information: rev log of sugars- fasting 99-126, lunch time 117-135 and bedtime sugars 110-122. diabetes diabetes HDV sugar 167 this a m, before dinner 290, avg sugar 349 last week, yesterday am sugar 147, admitted with covid pneumonia, nurse twice a week to see her, needs incentive spirometer, oxygen 92- 93-95% rev d/c summary and rev and refilled all meds needs diabetic education f/u vaginal itching Pt presents to office today for f/u after being seen for vaginal itching and labial bump. Feels much better with the occasional itch.09/04 visit--Noted vulvovaginal itching 2 weeks ago- she has been trying to use vinegar water and OTC itching medication but then noted a bump yesterday so scheduled to come in - this morning it popped and drained. Recent abx use for sinus infection.. vaginal lesion annual exam Currently pregna nt: no. : 4. Parity: Term: 4. Livin. Patient is not contemplating . The patient states she uses menopausal for control. Negative for dysmenorrhea and menorrhagia. Negative for: breast discharge, breast lump(s) and breast pain.Postmenopausal: Age: 52, Type: natural. Menopausal symptoms negative for: hot flashes, insomnia and night sweats. Associated symptoms include vaginal itching. Pertinent negatives include anxiety, depression, dyspareunia, urinary incontinence, urinary urgency and vaginal discharge. The patient does not use tobacco. She does not drink alcohol. Additional information: Last seen 2012- reports did go regularly for nurse obgyn exams until then.Noted vulvovaginal itching 2 weeks ago- she has been trying to use vinegar water and OTC itching medication but then noted a bump yesterday so scheduled to come in - this morning it popped and drained. Recent abx use for sinus infection.. sinusitis (comments) been increa sing sinus problems for last 2 weeks. Smell ok, taste ok sinusitis The patient pres ents with symptoms that began 2 weeks ago. Associated symptoms include cough, nasal congestion, nasal obstruction, postnasal drainage and sinus pressure. Pertinent negatives include fatigue, fever and nasal drainage. Right foot pain (comments) Right foot pain for several years, stated it has worsened over the past few weeks and Tylenol is not helping the pain. Reported that she did have surgery on her right foot in 1999 (plantar fasciotomy) and is unsure if it is related. Feels like something is piercing her foot. Right foot pain medicare preventive The ''Up and Go'' test took less than 30 seconds and the patient does not need help with activities of daily living. The patient is not at risk for falls. The patient has fallen 1 times in the last year. The fall(s) resulted in injury. The patient has smoke detectors in the home. The patient does not have firearms, carbon monoxide detectors in the home. Patient reports using a seatbelt in vehicles. Relevant history is negative for tobacco use, alcohol use. Pre-Op Physical (comments) Sched uled for bilateral eyelid ptosis repair on 04/15. Needs paperwork completed. Pre-Op Physical On 04/15 at [facility] for bilateral upper eyelid ptosis repair and blepharopiasty, Dr. Anderson. Pre-op (comments) Scheduled for left cataract removal 01/12 at [facility]. Needs paperwork completed. Pre-op Patient here for a pre-op for Cataract surg on 01/12/17 with Og Francis at [facility]. 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 No concerns today. Seen and treated by Dr. Sharif for HTN, hyperlipidemia. Taking medication as prescribed. Needs refill of inhaler. Cough Onset: 11 Days. The problem is severe. The problem has worsened. Symptoms are not associated with sick family member and smoker. Aggravating factors include lying down. Associated symptoms include chills/rigors, cough, fatigue, fever, nasal congestion and wheezing. Additional information: pt has no voice. knee surgery Preop Exam: (L) Knee, Cyst Removal on 05/27/[address] Silvano BrookeCardiac clearance given by Dr Zion Ballard (pts Informatics Coordinator) Functional Status Date Functional Assessmen t No Information Instructions Date Instruction Additional Infor gurmeet Will send antibiotic since symptoms have persisted. Recheck CXR as patient reports that she was seen in ED at end of Mar. and dx with PNA. Pt states that the Januvia is causing her stomach cramps and wants it changed. Advised to make an appt to recheck labs and for diabetes follow up. Related to Persistent cough Lifestyle education regarding di et Related to Dietary counseling and surveillance Giving encouragement to exercise Related to Dietary counseling and surveillance Reviewed TVUS with p atientShe denies any postmenopausal bleeding Discuss need for EMB if starts having PMBPatient agreeable to this planFollow up in 1 yearMammogram order printed again. Related to Intramural uterine fibroid Lifestyle education regarding di et Related to Dietary counseling and surveillance Giving encouragement to exercise Related to Dietary counseling and surveillance Patient desires to c ontinue breast cancer screeningMammogram ordered Related to Screening for breast cancer TVUS orderedFollow u p in 3 weeks to discuss TVUS and get EMB if neededNo postmenopausal bleedingBack pain improved from the ERNuswab sent to r/o endometritis Related to Uterine mass Dietary needs education Related to Dietary counseling and surveillance Giving encouragement to exercise Related to Dietary counseling and surveillance Lifestyle education regarding di et Related to Dietary counseling and surveillance Giving encouragement to exercise Related to Dietary counseling and surveillance Pt with some low sug ars - has been corrected with a bedtime snack. Continue current medications. Labs today. F/u in 6 months or sooner as needed. Related to Type 2 diabetes mellitus without complications Lifestyle education regarding di et Related to Dietary counseling and surveillance Giving encouragement to exercise Related to Dietary counseling and surveillance Filled out foster forms for esteban ent. Related to Physical exam Lifestyle education regarding di et Related to Dietary counseling and surveillance Giving encouragement to exercise Related to Dietary counseling and surveillance Giving encouragement to exercise Related to Dietary counseling and surveillance Dietary management e ducation, guidance, and counseling Related to Dietary counseling and surveillance Lifestyle education regarding di et Related to Dietary counseling and surveillance Giving encouragement to exercise Related to Dietary counseling and surveillance Lifestyle education regarding di et Related to Dietary counseling and surveillance Giving encouragement to exercise Related to Dietary counseling and surveillance Lifestyle education regarding di et Related to Dietary counseling and surveillance Giving encouragement to exercise Related to Dietary counseling and surveillance take antibiotics as prescribed R elated to Acute non-recurrent sinusitis, unspecified location Patient instructed o n use of saline sprays. Related to Acute non-recurrent sinusitis, unspecified location Lifestyle education regarding di et Related to Dietary counseling Giving encouragement to exercise Related to Dietary counseling Prednisone as prescr ibed.Soak foot in warm water.Follow up with podiatry. Related to Right foot pain Follow up with PCP i n regards to BP elevation in office.Encouraged to take medication as prescribed and to monitor BP at home. Related to Essential hypertension Lifestyle education regarding di et Related to Dietary counseling and surveillance Giving encouragement to exercise Related to Dietary counseling and surveillance take medication as directed Rela wally to Essential (primary) hypertension Follow a low sodium diet. Relate d to Essential (primary) hypertension total cholesterol < 200 Related to Hyperlipidemia, unspecified hyperlipidemia type total cholesterol < 200 Related to Hyperlipidemia, unspecified hyperlipidemia type take medication as directed Rela wally to Essential (primary) hypertension Follow a low sodium diet. Relate d to Essential (primary) hypertension Lifestyle education regarding di et Related to Dietary counseling and surveillance Giving encouragement to exercise Related to Dietary counseling and surveillance Cleared for surgery. Paperwork completed and signed. Follow up as needed. Related to Pre-op exam Cleared for surgery. Paperwork completed. Follow up as needed. Related to Pre-op exam Paperwork completed and signed. Continue previously prescribed medication. Follow up with Dr. Sharif as recommended. Related to Essential (primary) hypertension Continue previously prescribed medication. Follow up with Dr. Sharif as recommended. Related to Hyperlipidemia, unspecified hyperlipidemia type Inhaler refilled. Related to Mil d intermittent asthma without complication cleared for surgery as planned R elated to Pre-op exam avoid lifting anythi ng greater than/equal to 5 lbs. Related to Sprain of cervical neck take medications as directed Rel ated to Sprain of cervical neck Perform monthly self breast examinations. Related to Gynecological Examination Call if concerns for dehydration . Related to Acute laryngitis without mention of obstruction Increase fluids and rest, soft d iet. Related to Acute laryngitis without mention of obstruction Assessments Type Assessment Date No Information Patient Care Teams Name Effective Dates (start - stop) Status Members No Information
--- NOTE | ~2025-02-09 | CT_ITS ---
CT HEAD NON-CONTRAST Clinical History: Syncope Comparison: CT brain 11/05/2024 Technique: Unenhanced axial images skull base to vertex Coronal, sagittal reformats CT images acquired with automatic exposure control for dose reduction DLP: 605 mGy-cm Findings: Mild white matter chronic microvascular ischemic changes. Sulci, ventricles: Unremarkable. No intracerebral hemorrhage. No evidence acute territorial infarct. No mass effect, midline shift. Bony calvarium intact. Visualized paranasal sinuses: Clear. Mastoid air cells: Clear. IMPRESSION: 1. No acute intracranial findings. Reviewed, dictated and finalized at location R. DESIGNER
--- NOTE | ~2025-02-09 | CT_ITS ---
CTA CHEST CLINICAL HISTORY: Syncope, abnormal chest xray . COMPARISON: Chest x-ray same day TECHNIQUE: Helical CTA performed from thoracic inlet to upper abdomen 100 mL Omnipaque 350 Coronal, sagittal reformats. Multiplanar MIPS CT images acquired with automatic exposure control for dose reduction DLP: 297 mGy-cm FINDINGS: Pulmonary arteries: No PE. Thoracic Aorta: No dissection or aneurysm. Heart/pericardium: Coronary artery calcifications. RV/LV ratio: Normal. Lungs/Pleura: Dependent changes. Trace basilar predominant interlobular septal thickening and groundglass opacity. Tracheobronchial tree: Patent. Nodes: No enlarged nodes. Bones: No acute bony abnormality. Soft tissues: Unremarkable. Visualized upper abdomen: Unremarkable. IMPRESSION: 1. No PE. 2. Trace interstitial pulmonary edema and/or pneumonitis. Reviewed, dictated and finalized at location R. SMISSION MAINTENANCE SUPERVISOR
--- NOTE | ~2025-02-09 | XR_ITS ---
Examination: XR chest 1V portable Clinical History: Syncope Comparison: None Technique: Portable AP Findings: Heart size normal. Lungs clear. No acute bony abnormality. IMPRESSION: 1. No acute cardiopulmonary findings given portable technique. Reviewed, dictated and finalized at location R. PANNER
[2025-02-09 21:10] VITALS: BP 129/60; PULSE 81; RESP 13; TEMP 36.6; O2SAT 96
--- NOTE | 2025-02-09 21:15 | ECG_ITS ---
Test Date: 2025-02-09 21:15:21 Measurements Intervals [place] Rate: 76 P: 53 FL: 160 QRS: 53 QRSD: 75 T: 54 QT: 409 QTc: 462 Interpretive Statements SINUS RHYTHM No previous ECG available for comparison Electronically Signed On 02-10-2025 11:06:56 PHARMACIST AIDE by Leanne Riley M.D.
[2025-02-09 21:27] LABS: Hematocrit 32.4 % (37.0-47.0); Hemoglobin 10.2 g/dL (12.0-15.0); Immature Granulocyte Percent A 0.3 % (0-0.5); Lymphocytes Absolute Auto 2.94 K/mm3 (0.9-3.2); Mean Corpuscular HGB Conc 31.5 g/dl (32-36); Mean Corpuscular Hemoglobin 26.2 pg (26-34); Mean Corpuscular Volume 83.1 fl (80-100); Nucleated Red Blood Cells Absolute Auto 0.000 K/mm3 (0.0-0.012); Nucleated Red Blood Cells Perc 0.0 % (0.0-0.2); Platelet Count Result 214 k/mm3 (150-375); Red Blood Count 3.90 M/mm3 (4.2-5.4); White Blood Count 10.2 K/mm3 (4.5-10.0)
[2025-02-09 21:40] LABS: Alanine Aminotransferase 18 U/L (6-35); Albumin Level 4.4 g/dL (3.5-5.1); Alkaline Phosphatase 52 U/L (38-126); Anion Gap 11 mmol/L (4-12); Aspartate Amino Transferase 24 U/L (14-36); Bilirubin,Total 0.3 mg/dL (0.2-1.3); Blood Urea Nitrogen 16 mg/dL (7-17); Calcium 9.2 mg/dL (8.4-10.2); Carbon Dioxide 23 mmol/L (22-30); Chloride 102 mmol/L (98-107); Estimated CRCL calculation 44 ml/min; Estimated Glomerular Filt Rate > 60; Glucose 141 mg/dL (65-110); Potassium 4.4 mmol/L (3.4-5.0); Sodium 136 mmol/L (137-145); Total Protein 7.4 g/dL (6.3-8.2)
--- NOTE | 2025-02-09 22:07 | ED.SYNCOPE ---
HPI - Syncope General Chief Complaint: Syncope Stated Complaint: syncope Time Seen by Provider: 02/09/25 21:24 History of Present Illness HPI narrative: 79-year-old female with a past medical history including type 2 diabetes on metformin, cardiac disease without stents, hypertension, hyperlipidemia. Patient presents to the emergency department today after she felt lightheaded and generalized weakness and vomited once and fell to the ground. Patient lost consciousness briefly but was awake shortly thereafter. She states that yesterday she felt similarly while she was walking down some steps felt lightheaded and almost passed out but did not fully lose consciousness yesterday. She did fall down several steps but did not strike her head. Today she did fall to the ground and hit her head but did not take any blood thinner medications I have a baby aspirin. Regained consciousness quickly without any seizure activity. She vomited only 1 time reported by family members. Presently she is awake alert oriented. She is complaining of some headache going down the back of her scalp. Denies any chest pain shortness a breath. States she occasionally gets ribcage and body pains that her doctor has given her muscle relaxers for she is describing them as spasm pains that have been going on for multiple weeks. Denies any active chest pain or difficulty breathing. No back pain. No paresthesias in the arms or legs. No mobility issues or sensation/ motor loss. No history of seizures and states she has not had any frequent passing out episodes previously. Does not remember losing consciousness today or vomiting but members everything else from today and after the she woke up. Related Data Allergies Allergy/AdvReac Type Severity Reaction Status Date / Time Penicillins Allergy Rash Verified 06/11/24 09:56 Review of Systems Review of Systems: As reviewed above in HPI All systems reviewed & are unremarkable except as noted in HPI and below Exam Narrative: GENERAL: [Well-appearing, well-nourished, and in no acute distress.] HEAD: [Normocephalic, atraumatic.] EYES: [PERRLA and EOMI.] ENT: Nares clear, no rhinorrhea or epistaxis. Mucous membranes moist. NECK: Supple. CHEST: [Clear to auscultation. No respiratory distress.] HEART: [Regular rate and rhythm]. No murmur heard. [Normal peripheral pulses.] ABDOMEN: [Soft, nondistended], [nontender], [No rigidity or guarding] EXTREMITIES: Normal range of motion. [No edema.] SKIN: Warm, dry, no rash. NEURO: [No focal deficits]. Alert and oriented [x3.] PSYCH: [Normal mood and affect.] Course Vital Signs Vital signs: Vital Signs Temperature 36.6 C 02/09/25 21:10 Pulse Rate 81 02/09/25 21:10 Respiratory Rate 13 02/09/25 21:10 Blood Pressure 129/60 02/09/25 21:10 Pulse Oximetry 96 02/09/25 21:10 Oxygen Delivery Room Air 02/09/25 21:10 Temperature 36.6 C 02/09/25 21:10 Pulse Rate 88 02/10/25 02:22 Respiratory Rate 20 02/10/25 02:22 Blood Pressure 130/78 02/10/25 02:22 Pulse Oximetry 98 02/10/25 02:22 Oxygen Delivery Room Air 02/09/25 21:10 MDM - Syncope MDM Narrative Medical decision making narrative: 79-year-old female with a past medical history including type 2 diabetes on metformin, cardiac disease without stents, hypertension, hyperlipidemia. Patient presents to the emergency department today after she felt lightheaded and generalized weakness and vomited once and fell to the ground. Patient lost consciousness briefly but was awake shortly thereafter. She states that yesterday she felt similarly while she was walking down some steps felt lightheaded and almost passed out but did not fully lose consciousness yesterday. She did fall down several steps but did not strike her head. Today she did fall to the ground and hit her head but did not take any blood thinner medications I have a baby aspirin. Regained consciousness quickly without any seizure activity. She vomited only 1 time reported by family members. Presently she is awake alert oriented. She is complaining of some headache going down the back of her scalp. Denies any chest pain shortness a breath. States she occasionally gets ribcage and body pains that her doctor has given her muscle relaxers for she is describing them as spasm pains that have been going on for multiple weeks. Denies any active chest pain or difficulty breathing. No back pain. No paresthesias in the arms or legs. No mobility issues or sensation/ motor loss. No history of seizures and states she has not had any frequent passing out episodes previously. Does not remember losing consciousness today or vomiting but members everything else from today and after the she woke up. Patient has a benign physical examination with otherwise reassuring vital signs. No tachycardia, fever, hypoxemia normal blood pressure. She has strong symmetric pulses in clear breath sounds. Neurologically intact A&O x4 with no strength or sensation deficits. No facial asymmetry. Speaking full sentences without any distress. Given her recurrent presyncope and syncope episodes last 2 days broad workup undergone to rule out cardiac causes especially with her cardiac risk factors. Intracranial pathology or trauma also possible given that she did hit her head today. She is on aspirin but no other anticoagulation. Possibility of dehydration or kidney disease. CT of the head was ordered as well as a chest x-ray and cardiac workup. She was given fluid bolus. Troponin ordered. Chest x-ray independently reviewed does show some minimal pleural effusion left side as well as some mediastinal enlargement. syncope could also be potentially related to vascular causes or PE so CT angiography was ordered at this time. EKG obtained and shows normal sinus rhythm without any ectopy or ST segment derangements. Patient is observed here multiple hours without any recurrence of symptoms. She states she has no symptoms at all denies any further nausea vomiting or feeling lightheaded to the point she is going to pass out. Ambulated without any difficulty and had negative orthostatic vitals without any change. She remains hemodynamically stable. CT of the head shows no acute process. CT angiography of the chest shows no PE. She does have some patchy ground-glass opacities which may be atelectasis, edema, infection, aspiration and a small hiatal hernia seen. Given the reported vomiting and passing out episode potentially this is aspirate so we will treat this as potential aspiration pneumonitis/pneumonia. She is given Rocephin azithromycin combination and discussed with patient plan of care. Offered her admission after shared decision made given the historical elements and workup findings, but patient states she has no symptoms and after discussion would like to go home. Patient given strict return precautions as well as antibiotics and follow-up instructions with her PCP. Medical Records Attestation: I reviewed the patient's medical records. Lab Data Attestation: I reviewed the patient's lab results. 02/09/25 21:22 02/09/25 21:22 Labs: Lab Results 02/09/25 Range/Units 21:22 WBC 10.2 H (4.5-10.0) K/mm3 RBC 3.90 L (4.2-5.4) M/mm3 Hgb 10.2 L (12.0-15.0) g/dL Hct 32.4 L (37.0-47.0) % MCV 83.1 (80-100) fl MCH 26.2 (26-34) pg MCHC 31.5 L (32-36) g/dl RDW 14.8 H (11.5-14.5) % Plt Count 214 (150-375) k/mm3 MPV 9.7 (7.4-10.4) fl Immature Gran % (Auto) 0.3 (0-0.5) % Neut % (Auto) 62.6 (45.5-73.1) % Lymph % (Auto) 28.8 (18.3-44.2) % [place] % (Auto) 6.8 (2.6-8.5) % Eos % (Auto) 1.0 (0-4.4) % Baso % (Auto) 0.5 (0.2-1.2) % Lymph # (Auto) 2.94 (0.9-3.2) K/mm3 [place] # (Auto) 0.7 H (0.1-0.6) K/mm3 Eos # (Auto) 0.1 (0-0.3) K/mm3 Baso # (Auto) 0.1 (0.0-0.1) K/mm3 Abs Immat Gran (auto) 0.03 (0.00-0.031) K/mm3 Absolute Neuts (auto) 6.4 (1.3-6.7) K/mm3 Absolute Nucleated RBC 0.000 (0.0-0.012) K/mm3 Nucleated RBC % 0.0 (0.0-0.2) % Sodium 136 L (137-145) mmol/L Potassium 4.4 (3.4-5.0) mmol/L Chloride 102 (98-107) mmol/L Carbon Dioxide 23 (22-30) mmol/L Anion Gap 11 (4-12) mmol/L BUN 16 (7-17) mg/dL Creatinine 0.86 (0.7-1.0) mg/dL Estim Creat Clear Calc 44 ml/min Estimated GFR > 60 (59 - ) Glucose 141 H (65-110) mg/dL Calcium 9.2 (8.4-10.2) mg/dL Total Bilirubin 0.3 (0.2-1.3) mg/dL AST 24 (14-36) U/L ALT 18 (6-35) U/L Alkaline Phosphatase 52 (38-126) U/L Troponin I < 0.012 (0.000-0.034) ng/mL Total Protein 7.4 (6.3-8.2) g/dL Albumin 4.4 (3.5-5.1) g/dL Imaging Data Attestation: I personally reviewed and interpreted this imaging study as follows: My impression: Patchy ground-glass opacities. Small hiatal hernia. No PE. No intracranial pathology. Discharge Plan Discharge Clinical Impression: Aspiration pneumonitis, Syncope Patient Disposition: Home Condition: Stable Instructions: Antibiotic Form, Syncope (DC), Aspiration Pneumonia (DC) Additional Instructions: Workup today shows no electrolyte problems or any signs of blood clot or acute heart issue at this time. CT of the head shows no active bleeding or any masses/stroke. CT does show some opacities consistent with either infection or aspiration and given that you did have a vomiting episode we will treat this with antibiotics. Unclear exact causes to your syncope and passing out episode. Follow-up with your primary care provider closely and return with any recurrent symptoms new concerns such as recurrent passing out, new or ongoing chest pain, nausea, vomiting, vision changes, back pain or any other issues at all and seek re-evaluation at that time. Patient Language: Spanish Prescriptions: New azithromycin [Zithromax Z-Michael] 250 mg tablet See Rx Instructions PO .COMPLEX Qty: 6 0RF Rx Instructions: For 250 mg dose pack: take 500 mg today (day 1), then 250 mg for 4 days (days 2-5) cefdinir 300 mg capsule 300 mg PO Q12H 7 Days Qty: 14 0RF No Action acetaminophen [Tylenol Extra Strength] 500 mg tablet 1,000 mg PO TID PRN (Reason: pain) Qty: 30 0RF ibuprofen 600 mg tablet 600 mg PO TID PRN (Reason: pain) Qty: 20 0RF lidocaine 5 % adhesive patch,medicated 1 patch topical DAILY Qty: 15 0RF Rx Instructions: leave on most painful area for up to 12 hrs Follow-up/Referrals: PHYSICIAN,ORDER CHECKER PACKER PROCESSER [Non-Staff, Internal Medicine] Time of Disposition: 01:55
--- OUTSIDE RECORDS SUMMARY | 2025-02-09 22:09 | XMS_ITS | Encounter Summary ---
Author Organization [facility] Healthcare Address [address] [place] [id number] Care Team Providers Care Bilingual Teacher Name Role Phone Mitchell Menard MD Primary Care Provi grazyna Encounter Details Date Type Department Care Team (Late st Contact Info) Description 12/26/2024 Results Follow-Up [facility] Primary Care at [address] [place] [address] Mitchell Menard MD [address] [facility] [address] [place] [address] [facility] DALY, Lipid panel, Hemoglobin A1c, Additional followed-up results: 2 Social History Tobacco Use Types Packs/Day Years Used Date Smoking Tobacco: Never Smokeless Tobacco: Never AUDIT-C Answer Date Recorded Q1: [...] on file documented as of this encounter Plan of Treatment Not on file documented as of this encounter Visit Diagnoses Not on filedocumented in this encounter Care Teams Bilingual Teacher Relationship Specialty Start Date End Date Mitchell Menard MD [address] [facility] [address] [place] [address] PCP - General Family Practice 04/23/24 documented as of this encounter
--- OUTSIDE RECORDS SUMMARY | 2025-02-09 22:09 | XMS_ITS | Clinical Summary ---
Author Organization [facility] [address] Address [address] [facility] 5th [place] [address] Care Team Providers Care Sugar Refiner Name Role Phone Desi Sanders MD Primary Care Provi grazyna Allergies Active Allergy Reactions Criticality Noted Date Comments Other Chest tightness,Shortness of breath,Swelling,Swollen tongue,Wheezing High 04/23/2024 Penicillins Rash Medium 12/27/2023 Propofol Anaphylaxis High 05/02/2024 Family was with patient and said she can't have general anesthesia due to being intubated in the past before because of this medication. Medications aspirin 81 mg enteric coated tabletIndicati ons:Controlled type 2 diabetes mellitus with complication, without long-term current use of insulin Take 1 tablet (81 mg total) by mouth daily Active losartan (COZAAR) 100 mg tabletIndicati ons:Hypertensi on, essential Take 0.5 tablets (50 mg total) by mouth daily 90 tablet 1 024 Active nitroglycerin (NITROSTAT) 0.4 mg SL tabletIndicati ons:acute episode of anginal pain Place 1 tablet (0.4 mg total) under the tongue every 5 (five) minutes as needed for chest pain for up to 30 doses 30 tablet 3 024 Active cetirizine (ZyrTEC) 10 mg tabletIndicati ons:Seasonal allergies Take 1 tablet (10 mg total) by mouth daily as needed for allergies 90 tablet 4 Active azelastine (ASTELIN) 137 mcg (0.1 %) nasal sprayIndicatio ns:Seasonal allergies Administer 1 spray into each nostril 2 (two) times a day Use in each nostril as directed 30 mL 1 024 Active albuterol HFA (PROVENTIL HFA,VENTOLIN HFA,PROAIR HFA) 90 mcg/actuation inhalerIndicat ions:Acute Asthma Attack Inhale 2 puffs every 6 (six) hours as needed for wheezing or shortness of breath 1 each 3 025 Active isosorbide mononitrate ER (IMDUR) 30 mg 24 hr tablet Take 1 tablet (30 mg total) by mouth daily 90 tablet 3 025 2025 Active lidocaine (XYLOCAINE) 5 % ointment Apply topically 3 (three) times a day Massage into area of pain 3-4 times daily as directed. Collaborating physician Zion Naik MD 120 g 1 025 Active calcium carbonate-ting min D3 2,500 mg (1,000 mg elemental)-800 unit tablet Take by mouth Acti ve ibuprofen (ADVIL,MOTRIN) 600 mg tablet Take 1 tablet (600 mg total) by mouth 3 (three) times a day as needed for pain [address] (CYMBALTA) 30 mg capsuleIndicat ions:Diabetic peripheral neuropathy Take 1 capsule (30 mg total) by mouth daily 30 capsule 1 025 Active FreeStyle Kim 3 Plus Sensor device 1 Device continuously E11.65 6 each 4 025 2024 Active rosuvastatin (CRESTOR) 20 mg tablet TAKE 1 TABLET(20 MG) BY MOUTH DAILY 90 tablet 3 025 Active metFORMIN XR (GLUCOPHAGE XR) 500 mg 24 hr tablet Take 2 tablets (1,000 mg total) by mouth daily with breakfast 180 tablet 3 025 Active lidocaine (LIDODERM) 5 %Indications:A cute pain of right shoulder Place 1 patch on the skin daily for 12 hours Remove & discard patch(es) within 12 hours or as directed by 30 patch 1 025 2025 Active ketoconazole (NIZORAL) 2 % cream Apply topically 2 (two) times a day 60 g 025 Active baclofen (LIORESAL) 10 mg tabletIndicati ons:Spasm of right trapezius muscle Take 1 tablet (10 mg total) by mouth 3 (three) times a day as needed for muscle spasms 60 tablet 2024 Active metFORMIN XR (GLUCOPHAGE XR) 500 mg 24 hr tablet Take 3 tablets (1,500 mg total) by mouth daily with breakfast 270 tablet 3 2024 Discontinued(R eorder) lidocaine (LIDODERM) 5 % APPLY ONE PATCH TOPICALLY DAILY. LEAVE ON MOST PAINFUL AREA FOR UP TO 12 HOURS DIRECTED. 2024 Discontinued methylPREDNISo lone (MEDROL DOSEPACK) 4 mg Dosepack Take as directed on package. 21 tablet 2024 Active Problems Problem Noted Date Diagnosed Date Medicare annual wellness visit, subsequent 01/23 Acute pain of right shoulder 01/23/2025 Tinea pedis of both feet 01/23/2025 Spasm of right trapezius muscle 01/23/2025 Claudication 11/29/2024 Assessment & Plan (11/29/2024 11:41 AM CDT): Lumbar spondylosis 06/11/2024 Generalized osteoarthritis of multiple sites 06/2024 Overweight with body mass index (BMI) 25.0-29.9 01/17/2024 Assessment & Plan (03/30/2024 3:10 PM [facility]): - ADA/ heart healthy diet Assessment & Plan (01/17/2024 8:22 PM CDT): - ADA/heart healthy diet Diabetic polyneuropathy asso ciated with type 2 diabetes mellitus 01/17/2024 Assessment & Plan (11/29/2024 11:41 AM CDT): Orders: DULoxetine DR (CYMBALTA) 30 mg capsule; Take 1 capsule (30 mg total) by mouth daily Assessment & Plan (03/30/2024 3:10 PM [facility]): - chronic, continue gabapentin Assessment & Plan [...] associated with diabetes 01/02/2024 Assessment & Plan (11/29/2024 11:41 AM CDT): Orders: Comprehensive metabolic panel; Future Lipid panel; Future Assessment & Plan (03/30/2024 3:05 PM [facility]): - chronic; stable at goal of < [...] currently asymptomatic Controlled type 2 diabetes m ellitus with complication, without long-term current use of insulin 01/02/2024 Assessment & Plan (11/29/2024 11:41 AM CDT): Orders: Hemoglobin A1c; Future Albumin Creatinine Ratio, Urine; Future Assessment & Plan (03/30/2024 3:07 PM [facility]): - chronic; most recent hemoglobin A1c 7 [...] 01/02/2024 Assessment & Plan (03/30/2024 3:10 PM [facility]): - chronic; LDL 103, goal < 70 [...] Problem Noted Date Diagnosed Date Resolved Date Acute non-recurrent maxillary sinusitis 11/01/2024 11/29/2024 Unstable angina 01/17/2024 01/23/2025 Assessment & Plan (01/17/2024 8:21 PM CDT): [...] daily, nitroglycerin p.r.n. - Referral to Cardiology Body mass index (BMI) of 28.0-28.9 in adult 01/02/2024 01/17/2024 Encounter for screening colonoscopy 12/28/2023 01/17/2024 Encounters Date Type Department Care Team Description 01/23/2025 10:59 AM [facility] - 01/23/2025 11:59 PM [facility] Hospital Encounter [facility] Radiology - Outpatient Center at [address] [address] Acute pain of right shoulder Discharge Disposition: Discharge to home or self care 01/23/2025 10:30 AM [facility] Office Visit [facility] Primary Care at [address] [phone] Desi Sanders MD Medicare annual wellness visit, subsequent (Primary Dx); Hypertension associated with diabetes (HCC); 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); Controlled type 2 diabetes mellitus with complication, without long-term current use of insulin; Diabetic polyneuropathy associated with type 2 diabetes mellitus (HCC); Acute pain of right shoulder; Generalized osteoarthritis of multiple sites; Tinea pedis of both feet; Spasm of right trapezius muscle 01/23/2025 10:00 AM [facility] Office Visit [facility] Diabetes Endocrine Care at [address] [phone] Carlos Rodriguez DO Controlled type 2 diabetes mellitus with complication, without long-term current use of insulin (Primary Dx); Hyperlipidemia associated with type 2 diabetes mellitus (HCC); Hypertension associated with type 2 diabetes mellitus (HCC) 01/23/2025 Results Follow-Up [facility] Primary Care at [address] [phone] Desi aSnders MD XR Shoulder Right 2+ Vw 01/21/2025 10:00 AM [facility] Lab [facility] Outpatient Lab [place] [address] Controlled type 2 diabetes mellitus with complication, without long-term current use of insulin; Hypertension associated with diabetes (HCC) 01/11/[address] [facility] [address] [place] [id number] Angie Orellana CPhT 12/26/2024 Results Follow-Up [facility] Primary Care at [address] [phone] Desi Sanders MD [facility] DALY, Lipid panel, Hemoglobin A1c, Additional followed-up results: 2 12/21/2024 12:01 PM CDT - 12/21/2024 11:59 PM CDT Hospital Encounter [facility] [address] [place] [address] [facility] Claudication Discharge Disposition: Discharge to home or self care 12/07/2024 Telephone [facility] Primary Care at [address] [phone] Desi Sanders MD Medical Question/Miscellaneou s 12/05/2024 Telephone [facility] Diabetes Endocrine Care at [address] [phone] Carlos Rodriguez, DO 12/03/2024 Telephone [facility] Diabetes Endocrine Care at [address] [phone] Carlos Rodriguez, DO 11/29/2024 11:30 AM CDT Office Visit [facility] Primary Care at [address] [place] [phone] Desi Sanders MD Hypertension associated with diabetes (HCC) (Primary Dx); Diabetic peripheral neuropathy (HCC); Claudication; Controlled type 2 diabetes mellitus with complication, without long-term current use of insulin 11/29/2024 Telephone [facility] Primary Care at [address] [place] [phone] RodriguezCarlos riley Khadar, DO 11/28/2024 10:45 AM CDT Office Visit [facility] at [address] [place] [phone] Sofie Saldivar NP 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) (Primary Dx); Hypertension associated with diabetes (HCC) from Last 3 Months Immunizations Immunization Administration Dates Next Due Influenza LAIV (Nasal) 12/24/2022(Deferred: Mariana ent Refused) Influenza, Unspecified 04/24/2024(Deferr ed: Patient Refused),12/29/2023(Deferred: Patient Refused),01/15/2023(Deferred: Patient Refused),12/28/2022(Deferred: Patient Refused),12/28/2022(Deferred: Patient [...] Father Rohith torres Memory loss Father Rohith turpiniago Anemia Mother Pilar heather Cancer Mother Pilar heather Relation Name Status Comments Brother Arnav torres Alive Father Rohith torres Alive Mother Tia romero Alive Social History Tobacco Use Types Packs/Day Years Used Date Smoking Tobacco: Never Smokeless Tobacco: Never Tobacco Cessation:Counseling Given: Not Answered Alcohol Use Standard Drinks/Week Comments Never 0 (1 standard drink = 0.6 oz pur e alcohol) PHQ-2 Answer Date Recorded PHQ-2 Total Score 0 01/23/2025 PHQ-9 Answer Date Recorded PHQ-9 Total Score 0 01/23/2025 AUDIT-C Answer Date Recorded Q1: How often do you have a drink containing alcohol? Never 01/23/2025 Q2: How many drinks containi ng alcohol do you have on a typical day when you are drinking? Patient does not drink Q3: How often do you have si x or more drinks on one occasion? Never 01/23/2025 Personal Safety Answer Date Recorded Have you [...] Sexual Orientation Not on file Obstetrics History Para Term AB IAB SAB Ectopic Multiple Livin g Live Births 4 4 4 Date Outcome GA Total Labor Labor/2nd/3rd Weight Sex Type Anes PTL Arina A1 A5 Name Clin Term Term Term Term Last Filed Vital Signs Vital Sign Reading Time Taken Comments Blood Pressure 130/60 01/23/2025 10:13 AM [facility] Pulse 67 01/23/2025 10:13 AM [facility] Temperature 36.3 C (97.3 F) 01/23/2025 10:13 AM [facility] Respiratory Rate 21 01/23/2025 10:1 3 AM [facility] Oxygen Saturation 96% 01/23/2025 10: 13 AM [facility] Inhaled Oxygen Concentration - - Weight 70.7 kg (155 lb 13.8 oz) 025 10:13 AM [facility] Height 157.5 cm (5' 2.01) 01/23/2025 1 0:13 AM [facility] Body Mass Index 28.5 01/23/2025 10:13 AM [facility] Plan of Treatment Health Maintenance Due Date Last Done Comments DTaP/Tdap/Td Vaccine (1 - Tdap) 1956 Zoster Vaccine (1 of 2) 09/08/1995 Influenza Vaccine (#1) 2024 Hemoglobin A1C 07/21/2025 01/21/2025, 05/0 07/2024, 04/24/2024, Additional history exists Dilated Eye Exam 12/26/2025 12/26/2024 Albumin Creatinine Ratio, Urine 01/21/2026 , 12/27/2023 Lipid Panel 01/21/2026 01/21/2025, 10/0 10/2023, 07/18/2023, Additional history exists eGFR 01/21/2026 01/21/2025, 12/27/2023 Depression Screening 01/23/2026 01/23/2025, 01/23/2025, 04/24/2024, Additional history exists Fall Risk Assessment 01/23/2026 01/23/2025, 05/02/2024, 12/27/2023 Foot Exam 01/23/2026 01/23/2025, 01/17/2024 Well Visit 65+ 01/23/2026 01/23/2025, 01/23/2025 Osteoporosis Screening-Bone Density Scan 02/19/2026 02/20/2024, 09/11/2020, 09/11/2020 Hepatitis B Screening Discontinued 12/27/2023 Hepatitis C Screening Completed 12/27/2023 Pneumococcal vaccine 65+ Discontinued Procedures Procedure Name Priority Date/Time Associated Diagnosis Comments XR SHOULDER RIGHT 2 OR MORE VIEWS Schedule SABRINA, Read SABRINA (Appt Today, Awaiting Results) 01/23/2025 11:06 AM [facility] Acute pain of right shoulder EGFR Routine 01/21/2025 9:51 AM [facility] Hypertension associated with diabetes (HCC) COMPREHENSIVE METABOLIC PANEL Routine 01/21/2025 9:51 AM [facility] Hypertension associated with diabetes (HCC) HEMOGLOBIN A1C Routine 01/21/2025 9:51 AM [facility] Controlled type 2 diabetes mellitus with complication, without long-term current use of insulin LIPID PANEL Routine 01/21/2025 9:51 AM [facility] Hypertension associated with diabetes (HCC) ALBUMIN CREATININE RATIO, URINE Routine 01/21/2025 9:51 AM [facility] Controlled type 2 diabetes mellitus with complication, without long-term current use of insulin US DALY Schedule Routine, Read Routine (OP Routine) 12/21/2024 12:25 PM CDT Claudication DEXA AXIAL SKELETON BONE DENSITY 1 OR MORE SITES Schedule Routine, Read Routine (OP Routine) 02/20/2024 3:06 PM [facility] Post-menopause HEPATITIS C ANTIBODY Routine 12/27/2023 4:00 PM CDT Encounter for hepatitis C screening test for low risk patient from Last 3 Months or Most Recently Relevant to Health Maintenance Results * XR Shoulder Right 2+ Vw (01/23/2025 11:06 AM [facility]) Anatomical Region Laterality Modality Upper Extremities, Shoulder Right Comp uted Radiography 01/23/2025 11:1 4 AM [facility] Impressions 01/23/2025 11:14 AM [facility] 1. Degenerative changes of the right shoulder without definite evidence acute displaced fracture or dislocation. Electronically signed by: Marcio Molina D.O. Narrative 01/23/2025 11:14 AM [facility] STUDY DESCRIPTION: XR SHOULDER RIGHT 2 OR MORE VIEWS ORDERING HEALTHCARE PROVIDER: DESI SANDERS CLINICAL INDICATIONS: acute right shoulder pain. No known injury. Pain all directions. Right shoulder pain for 3 weeks with pain and movement. COMPARISON: None TECHNIQUE: 4 radiographic views of the right shoulder. FINDINGS: There is no definite evidence acute displaced fracture or dislocation involving the right shoulder. There are degenerative changes of the right glenohumeral joint joint space narrowing, mild sclerosis, and minimal spurring. There are degenerative changes right acromioclavicular joint joint space narrowing and mild spurring. There are degenerative changes of visualized spine. Procedure Note Marcio Molina DO - 01/23/2025 STUDY DESCRIPTION: XR SHOULDER RIGHT 2 OR MORE VIEWS ORDERING HEALTHCARE PROVIDER: DESI SANDERS CLINICAL INDICATIONS: acute right shoulder pain. No known injury. Pain all directions. Right shoulder pain for 3 weeks with pain and movement. COMPARISON: None TECHNIQUE: 4 radiographic views of the right shoulder. FINDINGS: There is no definite evidence acute displaced fracture or dislocation involving the right shoulder. There are degenerative changes of the right glenohumeral joint joint space narrowing, mild sclerosis, and minimal spurring. There are degenerative changes right acromioclavicular joint joint space narrowing and mild spurring. There are degenerative changes of visualized spine. IMPRESSION: 1. Degenerative changes of the right shoulder without definite evidence acute displaced fracture or dislocation. Electronically signed by: Marcio Molina D.O. us Desi Sanders MD IMG XR PROCEDURES F inal Result * eGFR (01/21/2025 9:51 AM [facility]) eGFR 81 >=60 mL/min/1. 73 m2 Comment: Interpretive Data [...] Current interpretive data was last reviewed 2021. Testing performed by: [facility], [address] [place] [address], [place]., [address] Blood 01/21/2025 9:51 AM [facility] 01/21/2025 1:48 PM [facility] us Desi Sanders MD LAB BLOOD ORDERABLE S Final Result JUAN M [id number] [facility] Department [place] [address] * Albumin Creatinine Ratio, Urine (01/21/2025 9:51 AM [facility]) Albumin Ur 14.9 mg/L Comment: Interpretive Data No reference range established. Current interpretive data was last revised 2018. Testing performed by: [facility], [address] [place] [address]., [id number] Creatinine Ur 80.3 mg/dL JUAN M Comment: Interpretive Data No reference range established. Current interpretive data was last revised 2018. Testing performed by: [facility], [address] [place] [address]., [id number] Albumin Creatinine Ratio, Ur 19 1 - 29 mg/g JUAN M Comment:Testing performed by : [address] [address] Urine 01/21/2025 9:51 AM [facility] 01/21/2025 1:17 PM [facility] Desi Sanders MD LAB URINE ORDERABLE S Final Result [address] Department [place] [address] * (ABNORMAL) Hemoglobin A1c (01/21/2025 9:51 AM ST[facility]ARD[facility]) Pathologist [facility] Hgb A1C 7.0(H) 4.0 - 5.6 % Comment:Testing performed by : [address] [address] Estimated Average Glucose 154 mg/dL JUAN M Comment: The ADA recommends reporting an estimated Average Glucose (eAG) with all Hemoglobin A1c results using the equation derived from a study of 507 normal and diabetic adults. Minority populations were underrepresented and children were not included. (Diabetes Care 31:7153-0119, 2008). The eAG is not equivalent to a fasting glucose. Testing performed by: [address] [address] Blood 01/21/2025 9:51 AM [facility] 01/21/2025 1:17 PM [facility] Desi Sanders MD LAB BLOOD ORDERABLE S Final Result [facility] [address] [facility] Department [place] [address] * Lipid panel (01/21/2025 9:51 AM [facility]) Cholesterol 108 30 - 199 mg/dL Comment: Interpretive Data [...] Interpretive Data was last revised on 2017. Testing performed by: [facility], [address] [place] [address]., [address] Triglycerides 102 <=149 mg/dL JUAN M Comment: Interpretive Data [...] Interpretive Data was last revised on 2017. Testing performed by: [facility], [address] [place] [address]., [address] HDL 45 >=40 mg/dL JUAN M Comment: Interpretive Data [...] Interpretive Data was last revised on 2017. Testing performed by: [address] [address] LDL, calculated 44 <=129 mg/dL JUAN M [place] Comment: Interpretive [...] Interpretive Data was last revised on 2023. Testing performed by: [address] [address] Non-HDL Cholesterol 63 mg/dL JUAN M Comment: Interpretive Data Ages [...] Interpretive Data was last revised on 2017. Testing performed by: [facility], [address] [place] [address]., [address] Chol/HDL ratio 2 JUAN M [place] Comment:Testing performed by : [address] [address] Blood 01/21/2025 9:51 AM [facility] 01/21/2025 1:17 PM [facility] us Desi Sanders MD LAB BLOOD ORDERABLE S Final Result [address] Department [place] [address] * Comprehensive metabolic panel (01/21/2025 9:51 AM [facility]) Sodium 139 135 - 145 mmol/L Comment:Testing performed by : [address], [address] Potassium, pl 4.7 3.3 - 4.9 mmol/L [facility] Comment:Testing performed by : [address], [address] Chloride 103 97 - 110 mmol/L [facility] Comment:Testing performed by : [address], [address] CO2 26 22 - 32 mmol/L [facility] Comment:Testing performed by : [address], [address] Anion gap 10 2 - 15 mmol/L [facility] Comment:Testing performed by : [address], [address] BUN 15 6 - 25 mg/dL [facility] Comment:Testing performed by : [address], [address] Creatinine 0.75 0.60 - 1.10 mg/dL [facility] Comment:Testing performed by : [address], [address] Glucose 121 70 - 199 mg/dL [facility] Comment: Interpretive Data Fasting glucose >/= 126 mg/dl is diagnostic for diabetes. Fasting is defined as no caloric intake for at least 8 hours. Fasting glucose between 100 mg/dl to 125 mg/dl is diagnostic of prediabetes. In a patient with classic symptoms of hyperglycemia or hyperglycemic crisis, a random glucose >/= 200 mg/dl is diagnostic for diabetes. In the absence of unequivocal hyperglycemia, results should be confirmed by repeat testing. The classification and Diagnosis of Diabetes Diabetes Care 202; 46: S19-S40. Current interpretive data was last revised 2022. Testing performed by: [facility], [address] [place] [address]., [address] Calcium 9.8 8.5 - 10.3 mg/dL [facility] Comment:Testing performed by : [facility], [address] [place] [address]., [address] Bilirubin, total 0.4 0.1 - 1.2 mg/dL [facility] Comment:Testing performed by : [facility], [address] [place] [address]., [address] Protein, pl 7.8 6.5 - 8.5 g/dL [facility] Comment:Testing performed by : [facility], [address] [place] [address]., [address] Albumin 4.6 3.5 - 5.0 g/dL [facility] Comment:Testing performed by : [facility], [address] [place] [address]., [address] Alk phos 46 40 - 130 Units/L [facility] Comment:Testing performed by : [facility], [address] [place] [address]., [address] ALT 11 7 - 45 Units/L [facility] Comment:Testing performed by : [address] [address] AST 21 10 - 45 Units/L [facility] Comment:Testing performed by : [address] [address] Blood 01/21/2025 9:51 AM [facility] 01/21/2025 1:17 PM [facility] us Desi Sanders MD LAB BLOOD ORDERABLE S Final Result [address] Department [place] [address] * Vl US DALY (12/21/2024 12:25 PM CDT) Anatomical Region Laterality Modality Vascular N/A Ultrasound 12/25/2024 9:21 PM CDT Narrative 12/25/2024 9:23 PM CDT EXAM DESCRIPTION: US DALY REASON FOR STUDY: Claudication TECHNIQUE: Brachial blood pressure obtained. Pressures obtained of the peripheral vessels at the level of the ankle. Ankle brachial indices calculated. COMPARISON: None FINDINGS: Segmental pressures on the right are as follows: Brachial Artery: 143 mm Hg Posterior Tibial Artery: 163 mm Hg triphasic waveform Dorsal Pedal Artery: 167 mm Hg biphasic waveform DALY is 1.07. Segmental pressures on the left are as follows: Brachial Artery: 156 mm Hg Posterior Tibial Artery: 177 mm Hg biphasic waveform Dorsal Pedal Artery: 170 mm Hg biphasic waveform DALY is 1.13. IMPRESSION: RIGHT DALY: Normal. LEFT DALY: Normal. THIS IS AN ELECTRONICALLY VERIFIED FINAL REPORT 12/25/2024 9:23 PM - Electronically signed by Jeff Longoria M.D. AR: ROSA Report ID: [id number] Reading Location: [id number] Procedure Note Jeff Longoria MD - 12/25/2024 EXAM DESCRIPTION: US DALY REASON FOR STUDY: Claudication TECHNIQUE: Brachial blood pressure obtained. Pressures obtained of the peripheral vessels at the level of the ankle. Ankle brachial indices calculated. COMPARISON: None FINDINGS: Segmental pressures on the right are as follows: Brachial Artery: 143 mm Hg Posterior Tibial Artery: 163 mm Hg triphasic waveform Dorsal Pedal Artery: 167 mm Hg biphasic waveform DALY is 1.07. Segmental pressures on the left are as follows: Brachial Artery: 156 mm Hg Posterior Tibial Artery: 177 mm Hg biphasic waveform Dorsal Pedal Artery: 170 mm Hg biphasic waveform DALY is 1.13. IMPRESSION: RIGHT DALY: Normal. LEFT DALY: Normal. THIS IS AN ELECTRONICALLY VERIFIED FINAL REPORT 12/25/2024 9:23 PM - Electronically signed by Jeff Longoria M.D. AR: ROSA Report ID: [id number] Reading Location: [id number] Desi Sanders MD IMG US PROCEDURES F inal Result * Dexa Axial Skeleton Bone Density 1 or 2 Site (02/20/2024 3:06 PM [facility]) Anatomical Region Laterality Modality Body N/A Other 02/20/2024 9:06 PM [facility] [employer] Narrative 02/20/2024 9:07 PM [employer] EXAM DESCRIPTION: DEXA AXIAL SKELETON BONE DENSITY 1 OR MORE SITES REASON FOR STUDY: 78 y/o year old F with given history of: Menopause screening for osteoporosis Screening. 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 MF: SHIVA Report ID: [id number] Reading Location: [address] Note Og Rapp MD - 02/20/2024 EXAM DESCRIPTION: DEXA AXIAL SKELETON BONE DENSITY 1 OR MORE SITES REASON FOR STUDY: 78 y/o year old F with given history of: Menopause screening for osteoporosis Screening. Stripper Shovel Operator/Model: CamioCam (S/N [id number]) CLINICAL INFORMATION: Current height: 63 inches Maximum [...] Og Rapp M.D. MF: SHIVA Report ID: [id number] Reading Location: [place] [address] Bina Lugo NP IMG DXA PROCEDURES Final Result * Hepatitis C antibody Blood (12/27/2023 4:00 [...] MICROBIOLOGY - GENERA L ORDERABLES Final Result JUAN M [id number] [place] [address] from Last 3 Months or Most Recently Relevant to Health Maintenance Insurance [facility] MEDICARE ADVANTAGE Advance Directives For more information, please contact: [phone] * Full Code (Latest Code Status on File) Date Activated Date Inactivated Comments 05/02/2024 8:02 AM 05/02/2024 3:16 PM * Full Code Date Activated Date Inactivated Comments 05/02/2024 8:02 AM 05/02/2024 8:02 AM Care Teams Sugar Refiner Relationship Specialty Start Date End Date Desi Sanders MD [address] [facility] [address] [place] [address] PCP - General Family Practice 04/23/24
[2025-02-09] MEDS: LACTATED RINGERS 1,000 ML 999 ML IV CONT (22:20)
[2025-02-09] MEDS: ONDANSETRON INJ 4 MG/2 ML VIAL IV PUSH (22:21)
[2025-02-09] MEDS: MORPHINE SULFATE (*CRX) 4 MG/ML INJ IV PUSH (22:22)
[2025-02-09 22:36] LABS: Troponin I < 0.012 ng/mL (0.000-0.034)
[2025-02-09 23:26] VITALS: BP 132/74; PULSE 88; RESP 13; O2SAT 97
[2025-02-10] VITALS (7 sets, daily range): BP systolic 108–130; BP diastolic 65–78; PULSE 81–98; RESP 11–20; O2SAT 95–98
[2025-02-10] MEDS: cefTRIAXone 2 GM in SODIUM CHLORIDE 0.9% IV 100 ML 200 ML IVPB (02:00)
[2025-02-10] MEDS: AZITHROMYCIN 500 MG TABLET PO (02:02)
== END 2025-02-10 02:24 | disposition home or self-care (01) ==
PROVIDERS: Emergency Provider Student in an Organized Health Care Education/Training Program; PCP Family Medicine
DX: J69.0 Pneumonitis due to inhalation of food and vomit (principal); R55 Syncope and collapse; I11.9 Hypertensive heart disease without heart failure; E11.9 Type 2 diabetes mellitus without complications; E78.5 Hyperlipidemia, unspecified; K44.9 Diaphragmatic hernia without obstruction or gangrene; Z79.84 Long term (current) use of oral hypoglycemic drugs
CPT/HCPCS: 36415; 70450; 71045; 71275; 80053; 84484; 85025; 93005; 96361; 96365; 96375; 99284; J0696; J2270; J2405; J7120; Q9967